=== PATIENT | female | born 1965 | race Caucasian/White ===

== ENCOUNTER 2022-12-15 08:30 | Outpatient (OUT) | payer OTHER, SELFPAY ==
--- NOTE | 2022-12-15 08:32 | MM_ITS ---
Patient: MARY NAVARRO Exam Date: 12/15/2022 : 1965 Gender:F Ordering : DR Natalia Chapman M.D. Admission #: [id number] Family : DR ENDER MIRANDA [facility] Order #: [id number] CLICK HERE TO VIEW EXAM RADIOLOGY REPORT PROCEDURE: MM TOMOSYNTHESIS SCREENING BI COMPARISON: MG MAMM SCREEN 3D ZAMZAM CAD, 12/14/2021. MG MAMM SCREEN 3D ZAMZAM CAD, 12/12/2020. INDICATIONS: Screening Calculator Name NCI Breast Cancer Risk Assessment Tool 5 Year Breast Cancer Risk 0.90% Lifetime Breast Cancer Risk 5.10% Personal Breast Cancer No Personal Ovarian Cancer No Treatments None Family Cancers None LOCATION: [facility] BREAST COMPOSITION: Heterogeneously dense,which may obscure small masses. FINDINGS: DIAGNOSTIC CATEGORY 2--BENIGN FINDING. NO CHANGE FROM COMPARISON. Scattered benign-appearing calcifications are present. Scattered benign-appearing lymph nodes are present. Scattered benign-appearing nodules are present. RIGHT BREAST: No significant suspicious finding. LEFT BREAST: No significant suspicious finding. RECOMMENDATIONS: ROUTINE MAMMOGRAM AND CLINICAL EVALUATION IN 12 MONTHS. PLEASE NOTE: A NORMAL MAMMOGRAM DOES NOT EXCLUDE THE POSSIBILITY OF BREAST CANCER. A CLINICALLY SUSPICIOUS PALPABLE LUMP SHOULD BE BIOPSIED. Dictated by: Dev Dorado MD on 12/15/2022 at 09:59 Approved by: Dev Dorado MD on 12/15/2022 at 10:01
== END 2022-12-15 08:31 | disposition home or self-care (01) ==
LOC: MAMMO 08:30
PROVIDERS: PCP Family Medicine; Visit Provider Family Medicine
DX: Z12.31 Encounter for screening mammogram for malignant neoplasm of breast (principal)
CPT/HCPCS: 77063; 77067

== ENCOUNTER 2023-12-19 09:26 | Outpatient (OUT) | payer OTHER, SELFPAY ==
--- NOTE | 2023-12-19 09:29 | MM_ITS ---
Patient Name: MARY NAVARRO MR#: [id number] : 1965 Exam Date: 12/19/2023 Ordering Doctor: DR DORON GIL M.D. RADIOLOGY REPORT PROCEDURE: MM TOMOSYNTHESIS SCREENING BI COMPARISON: MM TOMOSYNTHESIS SCREENING BI, 12/15/2022. MG MAMM SCREEN 3D ZAMZAM CAD, 12/14/2021. INDICATIONS: Screening Calculator Name NCI Breast Cancer Risk Assessment Tool 5 Year Breast Cancer Risk 0.90% Lifetime Breast Cancer Risk 5.00% Personal Breast Cancer No Personal Ovarian Cancer No Treatments None Family Cancers None LOCATION: [facility] BREAST COMPOSITION: The breasts are heterogeneously dense,which may obscure small masses. FINDINGS: DIAGNOSTIC CATEGORY 2--BENIGN FINDING. NO CHANGE FROM COMPARISON. Scattered benign-appearing nodules are present. Scattered benign-appearing calcifications are present. Scattered benign-appearing lymph nodes are present. RIGHT BREAST: No significant suspicious finding. LEFT BREAST: No significant suspicious finding. RECOMMENDATIONS: ROUTINE MAMMOGRAM AND CLINICAL EVALUATION IN 12 MONTHS. PLEASE NOTE: A NORMAL MAMMOGRAM DOES NOT EXCLUDE THE POSSIBILITY OF BREAST CANCER. A CLINICALLY SUSPICIOUS PALPABLE LUMP SHOULD BE BIOPSIED. Dictated by: Dev Dorado MD on 12/19/2023 at 11:22 Approved by: Dev Dorado MD on 12/19/2023 at 11:23
== END 2023-12-19 09:27 | disposition home or self-care (01) ==
LOC: MAMMO 09:27
PROVIDERS: PCP Family Medicine; Visit Provider Obstetrics & Gynecology
DX: Z12.31 Encounter for screening mammogram for malignant neoplasm of breast (principal)
CPT/HCPCS: 77063; 77067

== ENCOUNTER 2024-12-20 09:04 | Outpatient (OUT) | payer OTHER, SELFPAY ==
--- OUTSIDE RECORDS SUMMARY | 2024-12-20 09:08 | XMS_ITS | Patient Health Record ---
Author Organization [facility] Address [address] [place] [address] Care Team Providers Care Rrts Name Role Phone Natalia Chapman Primary Care Provider Unavailabl e Allergies Allergen (clinical drug ingredient) Drug/Non Drug Allergy documented on EMR Reaction Allergy Type Onset Date Status penicillin V Penicillin V Potassium rash Drug Allerg y Active Reason For Referral No Information Medications Medication SIG (Take, Route, Frequency, Duration) Notes Start Date End Date Status Losartan Potassium ActiveCitalopram Hydrobromide*Please review and pick correct strength- formulation from Hashgo options. If intended option is not shown, discontinue and re-order from Quick Search*ActiveAcetaminophen 325 MG2 tab(s) orally Every 6 hours PRNNot-TakingAleveActiveClaritin*Please review and pick correct strength- formulation from Hashgo options. If intended option is not shown, discontinue and re-order from Quick Search*Not-Taking Immunizations Vaccine Route Administration Date Status Comme nts [id number] Quad PFS (0.5mL Admin) 18 y/o & older Unknown 04/16/2021 Refused Social History Tobacco Use: Social History Observation Description Date Details (start date - stop date) Never Smoker NA - NA Tobacco Control (Standard) Question Answer Notes Tobacco use: Nonsmoker Problems Problem Type SNOMED Code ICD Code Onset Dates Problem Status W/U Status Risk Notes Problem Anxiety (48267546) Anxiety (F41.9) ActiveconfirmedProblemDepressive disorder (disorder) (49690065)Depression, unspecified depression type (F32.A)ActiveconfirmedProblemSeasonal allergy (211095895)Seasonal allergies (J30.2)ActiveconfirmedProblemDisorder of tongue (64590901)Tongue abnormality (Q38.3)ActiveconfirmedProblemHypertension (29455920)Hypertension (I10)Activeconfirmed Plan Of Treatment No Information Insurance Providers Payer Name Payer Address Payer Phone Subscriber Number Group Number Insured Name Patient Relationship to Insured Coverage Start Date Coverage End Date [employer] [place] [employer] [address] [place] [address] [id number] Cortez Cornejo - patient is the insured Medical (General) History Medical History History ICD Code anxiety/depression seasonal cqikbwzlyZiprnfonydrlX20Imrlojrc History Surgery Date(Month/Year) trigger finger repair-bilateral thumbsHospitalization History Reason Date(Month/Year) see above
--- OUTSIDE RECORDS SUMMARY | 2024-12-20 09:08 | XMS_ITS | Clinical Summary ---
Author Organization [facility] Address [address] [place] [address] Care Team Providers Care Motor Runner Name Role Phone Lisette Dev Miller Unavailable Dev Knox Unavailable Natalia Chapman MD Primary Care Provider [phone] Allergies Active AllergyReactionsCriticalityNoted DateCommentsPenicillinsHives,Itching, ThatScfa87/05/2023 Other Reaction(s): Fever Seasonal AllergiesOther: See AxguzsruFpltse60/15/2023 Medications MedicationSigDispense QuantityRefillsLast FilledStart DateEnd DateStatus vitamin D3-vitamin K2 (DOSOKAP) 137.5-200 mcg tab Active escitalopram oxalate (LEXAPRO) 10 mg tablet Take 1 tablet by mouth every afternoon.12/06/2022ctive estradiol (ESTRACE) 0.01 % (0.1 mg/gram) vaginal cream APPLY A PEA SIZED DOLLOP ON TIP OF FINGER TO THE OUTSIDE OF VAGINA AND SWIPE INTO VAGINA ONCE A DAY12/10/2021ctive losartan (COZAAR) 50 mg tablet Take 1 tablet by mouth every afternoon.11/28/2022ctive rosuvastatin (CRESTOR) 20 mg tablet Take 1 tablet by mouth every afternoon.11/09/2022ctive zolpidem (AMBIEN) 5 mg tablet TAKE 1 TABLET BY MOUTH EVERYDAY AT BEDTIME NEEDED FOR SLEEP11/09/2022ctive metoprolol succinate ER (TOPROL XL) 25 mg 24 hr tablet Take 25 mg by mouth.11/28/2015Active Family History Medical HistoryRelationCommentsColon CancerPaternal GrandmotherRelationStatus CommentsPaternal Grandmother Social History Tobacco UseTypesPacks/DayYears UsedDateSmoking Tobacco: NeverPassive Smoke Exposure: NeverSmokeless Tobacco: Never Tobacco Cessation:Counseling Given: Not Answered PHQ-2AnswerDate RecordedPHQ-2 nkqcr9134Area Deprivation IndexAnswerDate RecordedNational Score (1-100), lower number is lower pzah943512/29/2022State Score (1-10), lower number is lower brzo8273Data from: https://www.neighborhoodatlas.[facility]/. Last address used for [address] [facility]3CommentsUnknownSex and Gender InformationValueDate RecordedSex Assigned at BirthNot on fileLegal SexFemale 01/16/2012 9:12 AM ESTGender IdentityNot on fileSexual OrientationNot on file Last Filed Vital Signs Vital SignReadingTime TakenCommentsBlood Pressure--Pulse--Temperature-- Respiratory Rate--Oxygen Saturation--Inhaled Oxygen Concentration--Oxmjmq67.1 kg (148 lb)12/29/2022 9:25 AM YKAQlpggv915.6 cm (5' 6 )12/29/2022 9:25 AM ESTBody Mass Index23.8912/29/2022 9:25 AM EST Plan of Treatment Health MaintenanceDue DateLast DoneCommentsAnxiety Wgdhkwidd70/08/1983Depression Bsqqsptit38/08/1983HIV Itqfwlkvn13/08/1983Hepatitis C Wirxvldgd02/08/1983 DTaP,Tdap,Td Vaccine (1 - Tdap)06/22/1983Cervical Cancer Wdbdppiht47/08/1986CT Stdjkvafldcv58/08/2010Cologuard (FIT-DNA)06/21/20099606Ppfxbmyyabw75/08/2010 Colorectal Cancer Indoezbdu63/08/2010Diabetes Usguzossb92/08/2010Fecal Occult Blood2009Lipid Trnfwavbm40/08/6093Bxztpxmvnguhl80/08/2010Shingrix Vaccine (1 of 2)2014Mammogram Qvwlqqdhe51/29/340381, 10/29/2021Covid-19 Vaccine (4 - 5- season)501/05/2021, 06/05/2020, 05/16/2020 Influenza Vaccine (#1)2024RSV Vaccine (1 - 1-dose 75+ series)06/22/2039 Pneumococcal Vaccine: 50+Qawisvwbx46/01/2024 Insurance Care Teams Team MemberRelationshipSpecialtyStart DateEnd Date Natalia Chapman MD [address] [place] [address] PCP - Generalmily Medicine04/10/24 Dev Knox [address] [place] [phone] ArrnlusboUhnawpwbvhc85/6/23 Dev Knox [address] [facility] [address] MrpxukeatCyklyqnbiqd23/6/23
--- OUTSIDE RECORDS SUMMARY | 2024-12-20 09:08 | XMS_ITS | Clinical Summary ---
Author Organization [facility] Address [address] [place] [address] Care Team Providers Care President Financial Institution Name Role Phone Natalia Chapman MD Primary Care Provider [phone] Veena Tena APRN-MARINE TOWER OPERATOR Unavailable Allergies Active AllergyReactionsCriticalityNoted DateCommentsPenicillinsHives,Itching, PoixRfdx23/05/2023 Other Reaction(s): Fever Medications MedicationSigDispense QuantityRefillsLast FilledStart DateEnd DateStatus escitalopram (Lexapro) 10 MG tablet 11/18/2022ctive estradiol (Estrace) 0.1 MG/GM vaginal cream 12/10/2021ctive rosuvastatin (Crestor) 20 MG tablet 11/18/2022ctive losartan (Cozaar) 50 MG tablet 11/18/2022ctive Vitamin D-Vitamin K (DosoKap) 5500-200 UNIT-MCG tablet Take 1 tablet by mouth Daily08/26/2022ctive diphenhydrAMINE (BENADryl) 2 % cream Indications:Bug bite without infection, subsequent encounterApply topically 4 (four) times a day as needed for itching 56.8 g 1115Active Active Problems No known active problems Encounters DateTypeDepartmentCare HdhwKtkaffjhxrn32/29/2025 8:50 AM EDTOffice Visit [facility] [place] [facility] [address] [place] [phone] Veena Tena, MASTIC FLOOR LAYER-MARINE TOWER OPERATOR Seborrheic keratosis (Primary Dx); Lentigines; Capillary angioma; Prurigo nodularis; Melanocytic nevus of trunk; Jpenjonwvzppev52/29/2025amboo flowsheet [facility] [address] [place] [phone] Veena Tena, MASTIC FLOOR LAYER-MARINE TOWER OPERATOR 11/12/20242423Vflwzm25/22/2025Travelfrom Last 3 Months Family History Medical HistoryRelationNameCommentsHypertensionFatherHypertensionMotherRelation NameStatusCommentsFatherDeceasedMotherAlive Social History Tobacco UseTypesPacks/DayYears UsedDateSmoking Tobacco: NeverSmokeless Tobacco: Never Tobacco Cessation:Counseling Given: Not Answered Alcohol UseStandard Drinks/WeekCommentsYes0 (1 standard drink = 0.6 oz pure alcohol)caffeine 1-2 cups/day; coffeeCommentsUnknownSex and Gender InformationValueDate RecordedSex Assigned at BirthNot on fileLegal SexFemale 04/28/2022 6:35 PM EDTGender IdentityNot on fileSexual OrientationNot on file Last Filed Vital Signs Vital SignReadingTime TakenCommentsBlood Fdyndxsh699/9308 1:14 PM EDT Zbdkw307709/16/2023 1:14 PM RYKDuvayaqkijc73.8 ??C (98.2 ??F)09/16/2023 1:14 PM EDTRespiratory Smke628009/12/2023 12:11 PM EDTOxygen Dajnnejoqu67%09/12/2023 12:11 PM EDTInhaled Oxygen Concentration--Gxixts95.8 kg (156 lb)09/12/2023 12:11 PM XOOEusqmz316.1 cm (5' 5 )12/10/2022 8:30 AM EDTBody Mass Index25.9612/10/2022 8:30 AM EDT Plan of Treatment DateTypeDepartmentCare Team (Latest Contact Info)Mnqmtjmoizx21/06/2025 2:00 PM ESTClinical Support [facility] [address] [place] [address] Perlita Zimmerman, [facility] [address] [place] [address] 11/12/2025 9:05 AM EDTOffice Visit [facility] [place] [facility] [address] [place] [phone] Veena Tena, MASTIC FLOOR LAYER-MARINE TOWER OPERATOR [address] [place] [address] Health MaintenanceDue DateLast DoneCommentsCT Lhuprvqoeyap18/08/1965Colonoscopy 1965Colorectal Cancer Fugdyucoi89/08/1965FIT-DNA1964FIT1964 FOBT1965 0775Ylxjtijusnhdb69/08/1965Pneumococcal Vaccine: Pediatrics (0 to 5 Years) and At-Risk Patients (6 to 64 Years) (1 of 2 - PCV)06/22/1983Pap Smear 1985Cervical Cancer Qtbbafrdu29/08/1995HPV/Hecaew6706/21/1994Mammogram OVID-19 Vaccine (2024- season)501/05/2021, 06/05/2020, 05/16/2020Influenza Vaccine (#1)2024 Procedures Procedure NamePriorityDate/TimeAssociated DiagnosisCommentsBI MAMMOGRAM SCREENING TOMOSYNTHESIS FHMYQAWDMWkdbiau85/29/2021 from Last 3 Months or Most Recently Relevant to Health Maintenance Results * Bilateral screening mammogram with tomosynthesis (12/12/2020)Anatomical Region LateralityModalityBreastBilateralMammographySpecimen (Source)Anatomical Location / LateralityCollection Method / VolumeCollection TimeReceived Time Narrative 12/12/2020 12:00 AM EDT PERFORMED AT [facility] LOCATION:[place] [id number] Patient: ? MELANIE HERNANDEZ A. ? Exam Date: ? 12/12/2020 : ? 1965 ?Gender:F ? Ordering : ? DR Duy MORRIS D.O. ? Admission #: ? [id number] Family : ? DR NATALIA CHAPMAN M.D. ? Order #: ? [id number] ? CLICK HERE TO VIEW EXAM RADIOLOGY REPORT PROCEDURE: ? MAMMOGRAM SCREENING 3D BILATERAL CAD COMPARISON: ? MG MAMM SCREEN ZAMZAM W CAD 12/11/2019. ??MG MAMM RT DIAG W CAD 02/14/2020. INDICATIONS: ? Screening mammography Calculator Name ? NCI Breast Cancer Risk Assessment Tool 5 Year Breast Cancer Risk ? 0.80% Lifetime Breast Cancer Risk ? 5.30% Personal Breast Cancer ?No Personal Ovarian Cancer ? No Treatments ? None Family Cancers ? None LOCATION: ? [facility] BREAST COMPOSITION: ? Heterogeneously dense which may obscure small masses. FINDINGS: DIAGNOSTIC CATEGORY 1--NEGATIVE NO CHANGE FROM COMPARISON ASSESSMENT. Scattered benign-appearing calcifications are present. ??Scattered benign-appearing lymph nodes are present. RIGHT BREAST: ??No significant suspicious finding. LEFT BREAST: ??No significant suspicious finding. ??3 mm nodule upper outer quadrant stable RECOMMENDATIONS: ROUTINE MAMMOGRAM AND CLINICAL EVALUATION IN 12 MONTHS. PLEASE NOTE: ??A NORMAL MAMMOGRAM DOES NOT EXCLUDE THE POSSIBILITY OF BREAST CANCER. ??A CLINICALLY SUSPICIOUS PALPABLE LUMP SHOULD BE BIOPSIED. Dictated by: Dev Dorado MD on 12/12/2020 at 08:50 Approved by: Dev Dorado MD on 12/12/2020 at 08:53 Procedure Note CONVERSION, GENERIC - 08/20/2022 PERFORMED AT [facility] LOCATION:[place] [id number] Patient: MELANIE Denton Exam Date: 12/12/2020 : 1965 Gender:F Ordering : DR Duy MORRIS D.O. Admission #: [id number] Family : DR NATALIA CHAPMAN M.D. Order #: [id number] CLICK HERE TO VIEW EXAM RADIOLOGY REPORT PROCEDURE: MAMMOGRAM SCREENING 3D BILATERAL CAD COMPARISON: MG MAMM SCREEN ZAMZAM W CAD 12/11/2019. MG MAMM RT DIAG W CAD 02/14/2020. INDICATIONS: Screening mammography Calculator Name NCI Breast Cancer Risk Assessment Tool 5 Year Breast Cancer Risk 0.80% Lifetime Breast Cancer Risk 5.30% Personal Breast Cancer No Personal Ovarian Cancer No Treatments None Family Cancers None LOCATION: [facility] BREAST COMPOSITION: Heterogeneously dense which may obscure small masses. FINDINGS: DIAGNOSTIC CATEGORY 1--NEGATIVE NO CHANGE FROM COMPARISON ASSESSMENT. Scattered benign-appearing calcifications are present. Scattered benign-appearing lymph nodes are present. RIGHT BREAST: No significant suspicious finding. LEFT BREAST: No significant suspicious finding. 3 mm nodule upperouter quadrant stable RECOMMENDATIONS: ROUTINE MAMMOGRAM AND CLINICAL EVALUATION IN 12 MONTHS. PLEASE NOTE: A NORMAL MAMMOGRAM DOES NOT EXCLUDE THE POSSIBILITY OFBREAST CANCER. A CLINICALLY SUSPICIOUS PALPABLE LUMP SHOULD BE BIOPSIED. Dictated by: Dev Dorado MD on 12/12/2020 at 08:50 Approved by: Dev Dorado MD on 12/12/2020 at 08:53 Authorizing ProviderResult TypeResult StatusGeorge Felipe Morris DOIMG BI PROCEDURES Final Result from Last 3 Months or Most Recently Relevant to Health Maintenance Insurance Care Teams Team MemberRelationshipSpecialtyStart DateEnd Date Natalia Chapman MD [address] [place] [phone] PCP - GeneralFamily Vwahsoqk41/5/23 Veena Tena, MASTIC FLOOR LAYER-MARINE TOWER OPERATOR [address] [place] [address] PCP - [facility]02/2510
--- OUTSIDE RECORDS SUMMARY | 2024-12-20 09:12 | XMS_ITS | CCD ---
Author Organization [facility] Care Team Providers Care [place] Applier Name Role Phone JAMEC, DR MONTALVO Attending Unavailable BRAR, DR CODI Friedman Primary Care Unavailable VICKI, DR MONTALVO Admitting Unavailable WEST, DR RAJ Wyatt Consulting Unavailable VICKI, DR MONTALVO Consulting Unavailable BRAR, DR CODI Friedman Primary Care Unavailable WEST, DR RAJ Wyatt Consulting Unavailable BRAR, DR CODI Friedman Admitting Unavailable BRAR, DR CODI Friedman Attending Unavailable BRAR, DR CODI Friedman Consulting Unavailable CASTLE, WINCHA Consulting Unavailable IRENA VANCE Admitting Unavailable IRENA VANCE Attending Unavailable IRENA VANCE Consulting Unavailable MAYKEL, DR CODI Friedman Primary Care Unavailable MD Codi Brar Primary Care Provider [facility], Outreach Attending Provider [phone] Codi Brar Unavailable Ender Beebe Attending Unavailable Ender Beebe Admitting Unavailable Raj Knox Unavailable DMITRY KILPATRICK Attending Unavailable DMITRY KILPATRICK Attending Unavailable MD Codi Brar Primary Care Provider [phone] MD Codi Brar Attending Provider [phone] Codi Brar MD Primary Care Provider [phone] Codi Brar MD Primary Care Provider DMITRY KILPATRICK Referring Unavailable CODI BRAR Primary Care Unavailable DMITRY KILPATRICK Referring Unavailable oCdi Brar MD Primary Care Provider [phone] Codi Brar MD Attending Provider [phone] Codi Brar Attending Unavailable Codi Brar Primary Care Unavailable Codi Brar Admitting Unavailable Codi Brar MD Primary Care Provider Madan Banerjee Unavailable MADAN TENA Attending Unavailable MATTHEW WINCHESTER Attending Unavailable MADAN TENA Attending Unavailable Allergies Allergy ClassificationReported Allergen(s)Allergy TypeDate of OnsetReaction(s) Facility (20 sources)Penicillins; Translations: [Penicillins]Allergy to substance 53-78-6932pzsk, Hives, ItchingThe [facility] (6 sources)hydroCHLOROthiazide / TriamtereneDrug Zhmqjoi28-51-0400 Comment:Freetext Needs Updated.Nanosys Other (6 sources)Seasonal allergy; Translations: [seasonal allergies]Propensity to adverse reactions (disorder)43-72-7156Riilj: See CommentsAvita Health [facility] (1 source)TriamtereneDrug Slfuiof52-95-2001LcaiknedkDiley [facility] Center Repository (1 source)Unable to AssessDrug allergy (disorder)32-13-4150DthhqmzmuDiley Ridge Medical Center Repository Medications Current Medications MedicationDrug Class(es)DatesSig (Normalized)Sig (Original)cholecalciferol 5500 unt / vitamin k2 0.2 mg oral tablet (5 sources)Vitamin DStart: 03-64-0388efyq 137.5-200 ug by mouth once daily vitamin D3-vitamin K2 (DOSOKAP) 137.5-200 mcg tab ActivediphenhydrAMINE hydrochloride 20 mg/ml topical cream (4 sources)Histamine-1 Receptor AntagonistStart: 01-19-2024 End: 71-42-9367xiblikacbiBZXED (BENADryl) 2 % cream Indications: Bug bite without infection, subsequent encounter Apply topically 4 (four) times a day as needed for itching 56.8 g 11 01/19/2024 01/18/2025 Activeestradiol 0.1 mg/ml vaginal cream (20 sources)EstrogenStart: 24-37-3963Burqa: 46-49-7829perazdpat (Estrace) 0.1 MG/GM vaginal cream 12/10/2021 ActiveStart: 34-33-9842nrgznadmg (Estrace) 0.1 MG/GM vaginal cream APPLY A PEA SIZED DOLLOP ON TIP OF FINGER TO THE OUTSIDE OF VAGINA AND SWIPE INTO VAGINA ONCE A DAY 12/10/2021 ActiveComment on above:APPLY A PEA SIZED DOLLOP ON TIP OF FINGER TO THE OUTSIDE OF VAGINA AND SWIPE INTO VAGINA ONCE A DAY24 hr metoprolol succinate 25 mg extended release oral tablet (7 sources)beta-Adrenergic BlockerStart: 95-42-4682bqth 1 tablet by mouth once dailyStart: 46-52-7433pfdk 1 tablet by mouth every twenty-four hoursmetoprolol succinate ER (TOPROL XL) 25 mg 24 hr tablet Take 25 mg by mouth. 11/28/2015 ActiveComment on above:Take 25 mg by mouth.rosuvastatin calcium 20 mg oral tablet (20 sources)HMG-CoA Reductase InhibitorStart: 04-28-2023 End: 65-61-2438fvoa 1 tablet by mouth once dailyStart: 11-09-2022 End: 39-24-3222fzzstjbguhhr (Crestor) 20 MG tablet 11/18/2022 ActiveComment on above:Take 1 tablet by mouth every afternoon.Vitamin D-Vitamin K (DosoKap) 5500- 200 UNIT-MCG tablet (15 sources)Start: 85-35-5201ogwg 1 tablet by mouth once dailyVitamin D-Vitamin K (DosoKap) 5500-200 UNIT-MCG tablet Take 1 tablet by mouth Daily 08/26/2022 ActiveStart: 63-12-3348phlt 1 tablet by mouth once in the morningVitamin D- Vitamin K (DosoKap) 5500-200 UNIT-MCG tablet Take 1 tablet by mouth in the morning. 08/26/2022 Active Completed/Discontinued Medications MedicationDrug Class(es)DatesSig (Normalized)Sig (Original)azithromycin 250 mg oral tablet (6 sources)Macrolide AntimicrobialStart: 36-76-7089Pxdyotcts Z-Sammy 250 MG 2 tablet on the first day, then 1 tablet daily for 4 days Orally Once a day for 5 day(s) Sep, Not-Taking/PRNBeyaz (6 sources)Beyaz Take as directed Oral Not-Taking/PRNBeyaz Take as directed Oral Not-TakingbusPIRone hydrochloride 5 mg oral tablet (10 sources)Start: 07-01-2023 End: 59-08-3478xmuy 1 tablet by mouth twice dailyBuspirone 5 mg tablet Discontinued 5 MG PO Twice daily July 01, 2023 12:00am July 05, 2023 9:09am take 1 tablet by mouth three times daily as neededBuSpar 5 MG 1 tablet Orally Three times a day Not-Taking/PRNciprofloxacin 500 mg oral tablet (8 sources)Quinolone AntimicrobialStart: 07-02-2024 End: 18-32-0050zdmi 1 tablet by mouth twice dailyCiprofloxacin Hcl 500 mg tablet Discontinued 500 MG PO Twice daily July 02, 2024 12:00am 2024 10:24amStart: 07-01-2023 End: 63-17-1999Zmieythbnmsqz Hcl 0.3 % drops Discontinued DROPS OPHTHALMIC July 01, 2023 12:00am July 05, 2023 9:08am FreeTextSi application into the lower eyelid of affected eye Ophthalmic tid; Note: Source Status: Start; Qty: 1 Each; Provider: Maykel Fisher EStart: 95-28-7762Lswmxcyvrkjgn HCl 0.3 % 1 application into the lower eyelid of affected eye Ophthalmic tid for 5 day(s) Jan, Activedoxycycline monohydrate 100 mg oral tablet (2 sources)Tetracycline-class DrugStart: 09-12-2023 End: 34-83-3464arqf 1 tablet by mouth oncedoxycycline (Adoxa) 100 MG tablet Indications: Cellulitis of great toe of right foot Take 1 tablet (100 mg) by mouth every 12 (twelve) hours for 7 days Take with a full glass of water and do not lie down for at least 30 minutes after, avoid sun exposure 14 tablet 09/12/2023 09/19/2023 ExpiredDrospirenone-E.Estradiol-Lm.Fa (4 sources)Progestin, EstrogenStart: 07-01-2023 End: 20-36-4387Qtyarcpivdnb-E.Estradiol-Lm.Fa 3-0.02-0.451 mg (24) (4) tablet Discontinued TAB PO July 01, 2023 12:00am July 05, 2023 9:10am FreeTextSig: Take as directed Oral; Note: Source Status: Not-TakingundefinedPRN; Provider: Maykel Fisher ( )Start: 07-01-2023 End: 32-05-0084Evsdnsyuhejy-E.Estradiol-Lm.Fa Discontinued TAB PO July 01, 2023 12:00am July 05, 2023 9:10am FreeTextSig: Take as directed Oral; Note: Source Status: Not-Taking\PRN; Provider: Maykel Fisher ( )escitalopram 10 mg oral tablet (20 sources)Serotonin Reuptake InhibitorStart: 08-29-2023 End: 91-02-0527yfss 1 tablet by mouth once dailyEscitalopram Oxalate 10 mg tablet Discontinued 0 .ROUTE .COMPLEX 90 July 02, 2024 9:51am October 01, 2024 12:23pm TAKE 1 TABLET BY MOUTH EVERY DAYStart: 11-09-2022 End: 26-34-7143sottsfvjprfn (Lexapro) 10 MG tablet 11/18/2022 ActiveComment on above:Take 1 tablet by mouth every afternoon.gentamicin 3 mg/ml ophthalmic solution (10 sources)Start: 07-01-2023 End: 62-26-9617xqxf 1 drop(s) into the eye(s) every four hoursGentamicin 0.3 % drops Discontinued DROPS OPHTHALMIC July 01, 2023 12:00am July 05, 2023 9:09am FreeTextSi drop into both eyes Ophthalmic every 4 hrs to 6 hours; Note: Source Status: Not-TakingundefinedPRN; Refills: 0; Provider: Maykel Fisher ( )Start: 07-01-2023 End: 85-53-5088yhxy 1 drop(s) into the eye(s) every four hoursGentamicin Discontinued DROPS OPHTHALMIC July 01, 2023 12:00am July 05, 2023 9:09am FreeTextSi drop into both eyes Ophthalmic every 4 hrs to 6 hours; Note: Source Status: Not-Taking\PRN; Refills: 0; Provider: Maykel Fisher ( )Start: 35-43-4739Lgrzposszp Sulfate 0.3 % 2 drop into both eyes Ophthalmic every 4 hrs to 6 hours for 5 days Not-Taking/PRNStart: 24-79-2523Kqsbjrjjfs Sulfate 0.3 % 2 drop into both eyes Ophthalmic every 4 hrs to 6 hours for 5 days Not-Takinglosartan potassium 50 mg oral tablet (20 sources)Angiotensin 2 Receptor BlockerStart: 05-30-2023 End: 63-03-7383ewhm 1 tablet by mouth once dailyLosartan 50 mg tablet Discontinued 0 .ROUTE .COMPLEX 90 June 28, 2024 2:03pm October 01, 2024 12:2 3pm TAKE 1 TABLET BY MOUTH EVERY DAYStart: 11-18-2022 End: 63-61-8781vkgbttfb (Cozaar) 50 MG tablet 11/18/2022 ActiveComment on above: Take 1 tablet by mouth every afternoon.venlafaxine 75 mg oral tablet (10 sources)Serotonin and Norepinephrine Reuptake InhibitorStart: 07-01-2023 End: 95-07-8007rqjz 1 tablet by mouth once dailyVenlafaxine 75 mg tablet Discontinued 75 MG PO Daily July 01, 2023 12:00am July 05, 2023 9:09amtake 1 tablet by mouth twice daily at mealtimeEffexor 75 MG 1 tablet with food Orally Twice a day for 30 day(s) Not-Taking/PRNzolpidem tartrate 5 mg oral tablet (20 sources)gamma-Aminobutyric Acid-ergic AgonistStart: 11-09-2022 End: 37-31-9975ovac 1 tablet by mouth once daily at bedtimeZolpidem 5 mg tablet Discontinued 5 MG PO Daily at bedtime April 28, 2023 12:00am May 04, 2023 8:30amComment on above:TAKE 1 TABLET BY MOUTH EVERYDAY AT BEDTIME NEEDED FOR SLEEP Problems Active Problems Problem ClassificationProblemDateDocumented DateEpisodic/ChronicAnxiety disorders (10 sources)Mixed anxiety and depressive disorder; Translations: [Other specified anxiety disorders]ChronicDisorders of lipid metabolism (15 sources)Dyslipidemia; Translations: [Hyperlipidemia, unspecified]Onset: 75-97-3128EhughizT Codes: Natural/environment (2 sources)Insect bite - wound; Translations: [Bitten or stung by nonvenomous insect and other nonvenomous arthropods, subsequent encounter]88-70-4875Jwfjgcjk Heart valve disorders (1 source)Rheumatic tricuspid insufficiency; Translations: [RHEUMATIC TRICUSPID INSUFFICIENCY]Onset: 10-13-2442ZklaeopZqzfq valve disorders (4 sources)Cardiac murmur, unspecified; Translations: [CARDIAC MURMUR UNSPECIFIED]Onset: 05-22-6082CxkqkwylXerfvgswtdkz; infection of eye (except that caused by tuberculosis or sexually transmitteddisease) (1 source)Unspecified acute conjunctivitis, right eyeEpisodicMiscellaneous mental health disorders (7 sources)Primary insomnia; Translations: [Primary insomnia]ChronicMycoses (4 sources)Onychomycosis; Translations: [Tinea unguium]97-89-2895EoqdenliLfzjd and unspecified benign neoplasm (3 sources)Lipoma of left lower limb; Translations: [Benign lipomatous neoplasm of skin and subcutaneous tissue of left leg]85-86-8873QtmbktoiQfucs and unspecified benign neoplasm (3 sources)Dermatofibroma; Translations: [Other benign neoplasm of skin, unspecified]81-99-1730DydgbuozFxhbs and unspecified benign neoplasm (2 sources)Lipoma of lower limb; Translations: [Benign lipomatous neoplasm of skin and subcutaneous tissue of unspecified limb]88-20-2309UbmtihehMvzmn and unspecified benign neoplasm (1 source)Melanocytic nevus of trunk; Translations: [Melanocytic nevi of trunk] 21-75-4364NhrjigfdLxrrb circulatory disease (3 sources)Spider nevus; Translations: [Nevus, non-neoplastic]08-81-3335Ctbkkxci Other connective tissue disease (1 source)Other specified soft tissue disordersEpisodicOther ear and sense organ disorders (6 sources)Bilateral tinnitus; Translations: [Tinnitus, bilateral]EpisodicOther ear and sense organ disorders (1 source)Tinnitus; Translations: [Tinnitus, unspecified ear]55-73-5502Hzmwszse Other inflammatory condition of skin (1 source)Prurigo nodularis; Translations: [Prurigo nodularis]55-80-5453Wicnconu Other lower respiratory disease (1 source)Dyspnea, unspecified; Translations: [DYSPNEA UNSPECIFIED]Onset: 25-38-5767YgebjaqsAkxqn lower respiratory disease (1 source)Other abnormalities of breathing; Translations: [OTHER ABNORMALITIES OF BREATHING]Onset: 56-73-0023JenrznloPptyt nervous system disorders (6 sources)Piriformis syndrome; Translations: [Lesion of sciatic nerve, right lower limb]ChronicOther nervous system disorders (2 sources)Notalgia paresthetica; Translations: [Paresthesia of skin]10-27-2023 EpisodicOther nervous system disorders (2 sources)Numbness of toe; Translations: [Anesthesia of skin]88-81-8313Mkpicgoi Other screening for suspected conditions (not mental disorders or infectious disease) (4 sources)Encounter for screening mammogram for malignant neoplasm of breast; Translations: [ENC SCR MAMMO MALIG NEOPLASM BREAST]Onset: 13-19-2718Czqcbcuq Other skin disorders (3 sources)Seborrheic keratosis; Translations: [Other seborrheic keratosis] 79-38-6309FwqbpwadSmgvc skin disorders (3 sources)Lentiginosis; Translations: [Other melanin hyperpigmentation] 48-53-5214OxdvfbtvZvopm skin disorders (2 sources)Actinic keratosis; Translations: [Actinic keratosis]11-10-2023 EpisodicOther upper respiratory infections (2 sources)Acute maxillary sinusitis; Translations: [Acute maxillary sinusitis, unspecified]35-67-1161SmxnhnfcYytjsjxk codes; unclassified (4 sources)Insomnia; Translations: [Insomnia, unspecified]52-13-8521IjakiwjrKjjv and subcutaneous tissue infections (4 sources)Cellulitis of right toe; Translations: [Cellulitis and abscess of toe, unspecified]94-92-7288GhhmjykhOgpcpuhuudn; intervertebral disc disorders; other back problems (1 source)Spondylosis without myelopathy or radiculopathy, thoracic region; Translations: [SPONDYLS W/O MYELO-/RADICULOP THOR]Onset: 36-13-7359Gezuvfo Spondylosis; intervertebral disc disorders; other back problems (1 source)Pain in thoracic spine; Translations: [PAIN IN THORACIC SPINE]Onset: 60-02-4147TzkmlzedRtwypijiqtn injury; contusion (6 sources)Insect bite to leg - nonvenomous; Translations: [Insect bite (nonvenomous), unspecified lower leg, subsequent encounter]14-05-9057Ntzloyqw Unclassified (2 sources)H93.13 - Tinnitus, bilateral Past or Other Problems Problem ClassificationProblemDateDocumented DateEpisodic/ChronicImmunizations and screening for infectious disease (4 sources)Encounter for immunization; Translations: [ENCOUNTER FOR IMMUNIZATION]Onset: 09-69-2402YmzqtlsbGdigj and unspecified benign neoplasm (1 source)Benign lipomatous neoplasm of skin and subcutaneous tissue of left leg; Translations: [Lipoma of left lower extremity]Onset: 69-08-7601Yuzmzqtv Results Test NameValueInterpretationReference RangeFacilityAlanine aminotransferase [Enzymatic activity/volume] in Serum or PlasmaOrdered By: Codi Brar on 35-07-1814ZRN [Catalytic activity/Vol]26 U/LNormal7-52[facility] CenterComment on above:Performed By: #### CMP, LIPID #### [facility] [place] [address] [place] [address] USAAlbumin [Mass/volume] in Serum or Plasma by Bromocresol green (BCG) dye binding methoOrdered By: Codi Brar on 54-30-4063Raxbowt BCG dye [Mass/Vol]4.8 g/dL3.5-5.7FProtestant HospitalAlkaline phosphatase [Enzymatic activity/volume] in Serum or PlasmaOrdered By: Codi Brar on 18-91-1507TUR [Catalytic activity/Vol]90 U/INvtpoc44-090QitevsupvDiley Ridge Medical CenterComment on above:Performed By: #### CMP, LIPID #### [facility] [address] [place] [address] USAAspartate aminotransferase [Enzymatic activity/volume] in Serum or PlasmaOrdered By: Codi Brar on 47-88-4543YIX [Catalytic activity/Vol]22 U/AFarbei15-90NptykgcsqDiley Ridge Medical CenterComment on above: Performed By: #### CMP, LIPID #### [facility] [address] [place] [address] USABilirubin.total [Mass/volume] in Serum or PlasmaOrdered By: Codi Brar on 24-59-5823Xrevdmnru [Mass/Vol]0.5 mg/dLNormal0.3-1.0 [facility] CenterComment on above:Performed By: #### CMP, LIPID #### [facility] [address] [place] [address] USACalcium [Mass/volume] in Serum or PlasmaOrdered By: Codi Brar on 67-70-3547Xkdnvtw [Mass/Vol]9.7 mg/dLNormal8.6-10.3FProtestant HospitalComment on above:Performed By: #### CMP, LIPID #### [facility] [address] [place] [address] USACarbon dioxide, total [Moles/volume] in Serum or Plasma Ordered By: Codi Brar on 52-27-2906SL8 [Moles/Vol]31.1 mmol/LHigh21.0-31.0 [facility] CenterComment on above:Performed By: #### CMP, LIPID #### [facility] [address] [place] [address] USAChloride [Moles/volume] in Serum or PlasmaOrdered By: Codi Brar on 48-08-2276Hxggetre [Moles/Vol]103 mmol/KRglcwf98-749UzcntasrrDiley Ridge Medical CenterComment on above:Performed By: #### CMP, LIPID #### [facility] [address] [place] [id number] USACholesterol [Mass/volume] in Serum or PlasmaOrdered By: Codi Brar on 66-91-2405Dfbtfnyyixi [Mass/Vol]157 mg/wJWtyqmk354-246ViaalmavsDiley Ridge Medical CenterComment on above:Chol less than 200 mg/dl low riskChol 201-239 mg/dl borderline riskChol 240 mg/dl and greater high riskResult Comment: Chol less than 200 mg/dl low risk Chol 201-239 mg/dl borderline risk Chol 240 mg/dl and greater high riskPerformed By: #### CMP, LIPID #### [facility] [address] [place] [id number] USACholesterol in HDL [Mass/volume] in Serum or PlasmaOrdered By: Codi Brra on 23-70-5406Jcujidzqzxo in HDL [Mass/Vol]60 mg/bLFfgcdy12-11 [facility] CenterComment on above:HDL CHOL ATP-III CLASSIFICATION Cardiovascular RiskHDL > or equal to 60 mg/dL LOWHDL < 40 mg/dL HIGHResult Comment: HDL CHOL ATP-III CLASSIFICATION Cardiovascular Risk HDL > or equal to 60 mg/dL LOW HDL < 40 mg/dL HIGHPerformed By: #### CMP, LIPID #### [facility] [place] [address] [place] [id number] USACholesterol in LDL Calc [Mass/Vol]Ordered By: Codi Brar on 42-29-6949Fganhjafukw in LDL [Mass/Vol]52 mg/dL0-100[facility] CenterComment on above:LDL ATP III CLASSIFICATIONLDL less than 100 mg/dL OptimalLDL 100-129 mg/dL Near or above otumrlfIBO697-824 mg/dL Borderline highLDL 160-189 mg/dL HighLDL greater than 189 mg/dL Very highCholesterol in VLDL Calc [Mass/Vol]Ordered By: Codi Brar on 11-33-9896Nmojiqjrfsy in VLDL [Mass/Vol]45 mg/dLDiley Ridge Medical CenterComprehensive Metabolic Panel on 23-58-5667Kteexww [Mass/Vol]4.8 g/dLNormal3.5-5.7The [facility] Care Physician GroupComment on above:Performed By: #### CMP, LIPID #### [facility] [place] [address] [place] [id number] USAGFR/1.73 sq M.predicted MDRD (S/P/Bld) [Vol rate/Area] mL/min/{1.73_m2}NormalThe [facility] Health Care Physician GroupComment on above:Performed By: #### CMP, LIPID #### [facility] [place] [address] [place] [address] USACreatinine [Mass/volume] in Serum or PlasmaOrdered By: Codi Brar on 90-99-3986Ldiymneyew [Mass/Vol]0.77 mg/dLNormal0.60-1.20 [facility] CenterComment on above:Performed By: #### CMP, LIPID #### [facility] [place] [address] [place] [address] USAGlomerular filtration rate [Volume Rate/Area] in Serum, Plasma or Blood by CreatinineOrdered By: Codi Brar on 74-07-9064Bqdiwinljp filtration rate [Volume Rate/Area] in Serum, Plasma or Blood by Creatinine> 60.0 mL/MinDiley Ridge Medical CenterGlucose [Mass/volume] in Serum or Plasma Ordered By: Codi Brar on 13-95-7166Kwgjqlj [Mass/Vol]103 mg/eUQpvr85-692 [facility] CenterComment on above:ADA recommended reference rangeRandom Glucose Reference Range is dependent on time and content of last meal. Glucose of more than 200 mg/dL in a nonstressed, ambulatory subject supports the diagnosisof Diabetes Mellitus.Result Comment: Random Glucose Reference Range is dependent on time and content of last meal. Glucose of more than 200 mg/dL in a nonstressed, ambulatory subject supports the diagnosis of Diabetes Mellitus. ADA recommended reference rangePerformed By: #### CMP, LIPID #### [facility] [place] [address] [place] [address] USALipid Panelon 72-83-9278ZCF Cholesterol,Vqlodiyxdx86 mg/dL Normal0-100The [facility] Health Care Physician GroupComment on above:Result Comment: LDL ATP III CLASSIFICATION LDL less than 100 mg/dL Optimal LDL 100-129 mg/dL Near or above optimal LDL 130-159 mg/dL Borderline high LDL 160-189 mg/dL High LDL greater than 189 mg/dL Very highPerformed By: #### CMP, LIPID #### [facility] [place] [address] [place] [id number] USATriglyceride w/Byaeiy938 mg/dLHigh0-149The [facility] Care Physician GroupComment on above:Result Comment: TRIG ATP III CLASSIFICATION TRIG less than 150 mg/dL Normal TRIG 150-199 mg/dL Borderline high TRIG 200-500 mg/dL High TRIG greater than 500 mg/dL Very high Standard traceable to the Center for Disease Conrtrol and Prevention (CDC) test method.Performed By: #### CMP, LIPID #### [facility] [place] [address] [place] [id number] USAVLDL GXPUEMRAHMY86 mg/dLNormalThe [facility] Care Physician GroupComment on above:Performed By: #### CMP, LIPID #### [facility] [place] [address] [place] [id number] USANo Panel InformationOrdered By: Codi Brar on 11-05-2024 Pharm[facility] [Moles/volume] in Serum or PlasmaOrdered By: Codi Brar on 11-05-2024 Potassium [Moles/Vol]4.5 mmol/LNormal3.5-5.1FProtestant Hospital Comment on above:Performed By: #### CMP, LIPID #### [facility] [address] [place] [address] USAProtein [Mass/volume] in Serum or PlasmaOrdered By: Codi Brar on 75-37-1805Lxjvggq [Mass/Vol]7.6 g/dLNormal6.4-8.9[facility] CenterComment on above:Performed By: #### CMP, LIPID #### [facility] [place] [address] [place] [address] USASerum globulin measurement by calculation (mass/volume) Ordered By: Codi Brar on 47-28-1925Qodwfgnp (S) [Mass/Vol]2.8 g/dLNormal [facility] CenterComment on above:Performed By: #### CMP, LIPID #### [facility] [address] [place] [address] USASerum or plasma albumin/globulin mass ratioOrdered By: Codi Brar on 76-82-3316Sazjvir/Globulin [Mass ratio]1.7 {ratio}Normal [facility] CenterComment on above:Performed By: #### CMP, LIPID #### [facility] [address] [place] [address] USASerum or plasma anion gap determinationOrdered By: Codi Brar on 36-52-8630Rcuou gap [Moles/Vol]11.4 mmol/LNormal6.0-15.0[facility] CenterComment on above:Performed By: #### CMP, LIPID #### [facility] [address] [place] [address] USASerum or plasma total cholesterol/high density lipoprotein (HDL) cholesterol mass ratOrdered By: Codi Brar on 11-05-2024 Cholesterol.total/Cholesterol in HDL [Mass ratio]2.6 {ratio}Normal<5.0[facility] CenterComment on above:Result Comment: PERFORMED BY: [place] [id number] PATHOLOGIST RECORD CENTER COORDINATOR MERARY RUSSELL M.D.Performed By: #### CMP, LIPID #### [place] [address] USASodium [Moles/volume] in Serum or PlasmaOrdered By: Codi Brar on 84-58-2017[place]mk[place] [Moles/Vol]141 mmol/YNcfdak983-503YrzrfcubaDiley Ridge Medical CenterComment on above:Performed By: #### CMP, LIPID #### [place] [id number] USATriglyceride [Mass/volume] in Serum or PlasmaOrdered By: Codi Brar on 14-07-8032Ijdhrucctect [Mass/Vol]227 mg/dLHigh0-149[facility] CenterComment on above:TRIG ATP III CLASSIFICATIONTRIG less than 150 mg/dL NormalTRIG 150-199 mg/dL Borderline highTRIG 200-500 mg/dL High TRIG greater than 500 mg/dL Very highStandard traceable to the Center for Disease Conrtrol and Prevention (CDC) test method.Urea nitrogen [Mass/volume] in Serum or PlasmaOrdered By: Codi Brar on 31-25-5310Mtou nitrogen [Mass/Vol]16 mg/dLNormal7-25[facility] CenterComment on above:Performed By: #### CMP, LIPID #### [place] [id number] USAMRI UPPER LEG WO IVCON LTon [id number] UPPER LEG WO IVCON LT* * *Final Report* * * DATE OF EXAM: May 01 2024 12:17PM [facility] 0259 - MRI UPPER LEG WO IVCON LT / PROCEDURE REASON: Lipoma of left lower extremity * * * * Physician Interpretation * * * * LEFT UPPER LEG MRI: CLINICAL HISTORY: Lipoma of left lower extremity TECHNIQUE: Routine MR imaging of left upper leg was performed. COMPARISON: 06/06/2023 RESULT: NERVES: The visualized nerves normal in caliber and signal intensity. There is no mass or mass effect. BONE MARROW: Bone marrow signal intensity is maintained without acute fractures or marrow infiltrating neoplasm. MUSCLES: Again seen is approximately 5.3 x 2.3 x 8 cm intramuscular fatty lesion in left rectus femoris muscle, similar to prior examination. Muscle fibers are noted within the periphery of this lesion. No focal nonfatty nodules are identified. TENDONS: Visualized tendons are grossly intact. SUBCUTANEOUS TISSUES: No focal mass or collection. JOINTS: Normal appearing hip and knee joints within the limitation of large field of view. OTHER: None. IMPRESSION: STABLE APPEARANCE OF INTRAMUSCULAR FATTY LESION DESCRIBED. Stock Holder: RIYA Transcribe Date/Time: May 14 2024 10:49A Dictated by : CORNELIUS WELSH MD This examination was interpreted and the report reviewed and electronically signed by: CORNELIUS WELSH MD on May 14 2024 10:59AM EST [id number] Medical CenterNo Panel InformationOrdered By: Siri Bone on 84-94-3719PNUW IBillionaire Work Phone: alanine aminotransferase [Enzymatic activity/volume] in Serum or PlasmaOrdered By: Codi Brar on 30-91-3901YJW [Catalytic activity/Vol]32 U/L7-52[facility] CenterAlbumin [Mass/volume] in Serum or Plasma by Bromocresol green (BCG) dye binding methoOrdered By: Codi Brar on 88-16-3213Jgeabwi BCG dye [Mass/Vol]4.9 g/dL3.5-5.7FProtestant HospitalAlkaline phosphatase [Enzymatic activity/volume] in Serum or PlasmaOrdered By: Codi Brar on 35-21-2492HWF [Catalytic activity/Vol]75 U/L 34-104[facility] Medical CenterAspartate aminotransferase [Enzymatic activity/volume] in Serum or PlasmaOrdered By: Codi Brar on 26-59-4761AFE [Catalytic activity/Vol]30 U/I70-63WfjytmazbDiley Ridge Medical CenterBasophils Auto (Bld) [#/Vol]Ordered By: Codi Brar on 43-80-3599Qgcessbyz (Bld) [#/Vol] 0.0 10*3/uL0.0-0.2FProtestant HospitalBasophils/100 WBC Auto (Bld) Ordered By: Codi Brar on 28-34-6665Wuhnvnxnu/100 WBC (Bld)0.7 %.[facility] Medical CenterBilirubin.total [Mass/volume] in Serum or PlasmaOrdered By: Codi Brar on 93-38-8967Kmruaqojp [Mass/Vol]0.6 mg/dL0.3-1.0[facility] CenterCalcium [Mass/volume] in Serum or PlasmaOrdered By: Codi Brar on 90-59-8985Cbwqtbg [Mass/Vol]10.1 mg/dL8.6-10.3FProtestant HospitalCarbon dioxide, total [Moles/volume] in Serum or PlasmaOrdered By: Codi Brar on 88-95-3698AB0 [Moles/Vol]31.0 mmol/L21.0-31.0[facility] CenterChloride [Moles/volume] in Serum or PlasmaOrdered By: Codi Brar on 35-52-1847Joqtyddm [Moles/Vol]102 mmol/F66-746EtuxfdugjDiley Ridge Medical CenterCholesterol [Mass/volume] in Serum or PlasmaOrdered By: Codi Brar on 92-62-8222Hgrcjqsihct [Mass/Vol]208 mg/aVJmlu316-212HtalhtteqDiley Ridge Medical CenterComment on above:Chol less than 200 mg/dl low riskChol 201-239 mg/dl borderline riskChol 240 mg/dl and greater high riskCholesterol in LDL Calc [Mass/Vol]Ordered By: Codi Brar on 35-05-1094Yiaobqdmgag in LDL [Mass/Vol]82 mg/dL0-100[facility] Medical CenterComment on above:LDL ATP III CLASSIFICATIONLDL less than 100 mg/dL OptimalLDL 100-129 mg/dL Near or above uzhzcpqVIJ366-659 mg/dL Borderline highLDL 160-189 mg/dL HighLDL greater than 189 mg/dL Very highCholesterol in VLDL Calc [Mass/Vol]Ordered By: Codi Brar on 15-55-7683Xlqdjmssive in VLDL [Mass/Vol]47 mg/dLDiley Ridge Medical CenterCreatinine [Mass/volume] in Serum or PlasmaOrdered By: Codi Brar on 08-84-8838Emtklqilgn [Mass/Vol]0.72 mg/dL0.60-1.20[facility] Medical CenterEosinophils Auto (Bld) [#/Vol]Ordered By: Codi Brar on 10-28-2023 Eosinophils (Bld) [#/Vol]0.1 10*3/uL0.0-0.45[facility] Eosinophils/100 WBC Auto (Bld)Ordered By: Codi Brar on 10-28-2023 Eosinophils/100 WBC (Bld)2.4 %.[facility] Medical CenterErythrocyte distribution width Auto (RBC) [Ratio]Ordered By: Codi Brar on 10-28-2023 Erythrocyte distribution width (RBC) [Ratio]12.7 %11.9-15.3FProtestant HospitalGlobulin Calc (S) [Mass/Vol]Ordered By: Codi Brar on 10-28-2023 Globulin (S) [Mass/Vol]2.7 g/dLDiley Ridge Medical CenterGlucose [Mass/volume] in Serum or PlasmaOrdered By: Codi Brar on 58-63-9462Kxhtpoz [Mass/Vol]98 mg/nG21-383YcubwmlvoDiley Ridge Medical CenterComment on above:ADA recommended reference rangeRandom Glucose Reference Range is dependent on time and content of last meal. Glucose of more than 200 mg/dL in a nonstressed, ambulatory subject supports the diagnosisof Diabetes Mellitus.Hematocrit Auto (Bld) [Volume fraction]Ordered By: Codi Brar on 50-58-5575Pejbvgsrin (Bld) [Volume fraction]39.7 %34.0-46.4FProtestant HospitalHemoglobin [Mass/volume] in BloodOrdered By: Codi Brar on 95-38-2658Lbpmukdscs (Bld) [Mass/Vol]13.5 g/dL11.8-15.4FProtestant HospitalLeukocytes [#/volume] corrected for nucleated erythrocytes in Blood by Automated coun Ordered By: Codi Brar on 64-91-0216YYG corrected for nucl RBC Auto (Bld) [#/Vol]4.9 10*3/uL3.8-11.6FProtestant HospitalLymphocytes Auto (Bld) [#/Vol]Ordered By: Codi Brar on 38-58-5763Utxdcffcjjk (Bld) [#/Vol]1.4 10*3/uL1.00-4.8[facility] Medical CenterLymphocytes/100 WBC Auto (Bld) Ordered By: Codi Brar on 81-75-8694Vencdplwsim/100 WBC (Bld)28.4 %.[facility] HospitalH Auto (RBC) [Entitic mass]Ordered By: Codi Brar on 42-47-1399LWU (RBC) [Entitic mass]31.5 pg24.7-34.3FProtestant HospitalMCHC Auto (RBC) [Mass/Vol]Ordered By: Codi Brar on 22-69-4510OJHF (RBC) [Mass/Vol]33.9 g/dL32.0-35.0[facility] CenterMCV Auto (RBC) [Entitic vol]Ordered By: Codi Brar on 68-05-9446PZR (RBC) [Entitic vol]92.7 lP10-352YywjlntkvDiley Ridge Medical CenterMonocytes Auto (Bld) [#/Vol]Ordered By: Codi Brar on 39-92-1895Yothpuyva (Bld) [#/Vol]0.4 10*3/uL0.0-0.8[facility] CenterMonocytes/100 WBC Auto (Bld)Ordered By: Codi Brar on 59-18-3172Fnjtvjogi/100 WBC (Bld)8.8 %.[facility] Neutrophils Auto (Bld) [#/Vol]Ordered By: Codi Brar on 36-52-7956Qywdasqurhs (Bld) [#/Vol]3.0 10*3/uL1.8-7.7FProtestant HospitalNeutrophils/100 WBC Auto (Bld)Ordered By: Codi Brar on 79-53-6710Jsyppzwckyz/100 WBC (Bld) 59.7 %.[facility] CenterNo Panel InformationOrdered By: Codi Brar on 69-67-2756Hlzswyqkg GFR (CKD-EPI)> 60.0 mL/MinDiley Ridge Medical CenterPharmacy Creatinine Clearance (ChemN/[facility]ille HospitalNucleated erythrocytes [Presence] in Blood by Automated countOrdered By: Codi Brar on 38-77-5698Hmxgigmrz RBC Auto Ql (Bld)0.2 /100{WBC}0-0.5FProtestant HospitalPlatelet mean volume Auto (Bld) [Entitic vol]Ordered By: Codi Brar on 29-37-1052Fjhlsabl mean volume (Bld) [Entitic vol]8.2 fL6.3-10.7 [facility] CenterPlatelets Auto (Bld) [#/Vol]Ordered By: Codi Brar on 90-61-5449Xmiriekje (Bld) [#/Vol]380 10*3/qH143-776AturwnvgtDiley Ridge Medical CenterPotassium [Moles/volume] in Serum or PlasmaOrdered By: Codi Brar on 33-71-1182Qnvlamzet [Moles/Vol]4.3 mmol/L3.5-5.1FProtestant HospitalProtein [Mass/volume] in Serum or PlasmaOrdered By: Codi Brar on 75-24-5846Jjubqjb [Mass/Vol]7.6 g/dL6.4-8.9[facility] RBC Auto (Bld) [#/Vol]Ordered By: Codi Brar on 57-32-5525OVF (Bld) [#/Vol] 4.28 10*6/uL3.60-5.00St. Elizabeth Hospitalerum or plasma albumin/globulin mass ratioOrdered By: Codi Brar on 10-28-2023 Albumin/Globulin [Mass ratio]1.8 {ratio}St. Elizabeth Hospitalerum or plasma anion gap determinationOrdered By: Codi Brar on 52-55-6968Xnhdz gap [Moles/Vol]10.3 mmol/L6.0-15.0St. Elizabeth Hospitalerum or plasma high density lipoprotein (HDL) cholesterol measurementOrdered By: Codi Brar on 99-25-4676Fqrspvpemtq in HDL [Mass/Vol]79 mg/iH82-05AlvlymqpsDiley Ridge Medical CenterComment on above:HDL CHOL ATP-III CLASSIFICATION Cardiovascular RiskHDL > or equal to 60 mg/dL LOWHDL < 40 mg/dL HIGHSerum or plasma total cholesterol/high density lipoprotein (HDL) cholesterol mass ratOrdered By: Codi Brar on 28-98-5562Ghllgchcans.total/Cholesterol in HDL [Mass ratio]2.6 {ratio}<5.0St. Elizabeth Hospitalodium [Moles/volume] in Serum or PlasmaOrdered By: Codi Brar on 18-46-4440Zzamte [Moles/Vol]139 mmol/C366-027 [facility] CenterThyrotropin [Units/volume] in Serum or Plasma Ordered By: Codi Brar on 57-84-4118DBO Qn1.45 m[IU]/L0.45-5.33[facility] Medical CenterTriglyceride [Mass/volume] in Serum or PlasmaOrdered By: Codi Brar on 08-65-7892Swrodfgmzrcb [Mass/Vol]236 mg/dLHigh0-149D[facility] Medical CenterComment on above:TRIG ATP III CLASSIFICATIONTRIG less than 150 mg/dL NormalTRIG 150-199 mg/dL Borderline highTRIG 200-500 mg/dL High TRIG greater than 500 mg/dL Very highStandard traceable to the Center for Disease Conrtrol and Prevention (CDC) test method.Urea nitrogen [Mass/volume] in Serum or PlasmaOrdered By: Codi Brar on 64-16-2739Jatw nitrogen [Mass/Vol]18 mg/dL7-25[facility] Medical CenterWBC Auto (Bld) [#/Vol]Ordered By: Codi Brar on 43-21-7863FCV (Bld) [#/Vol]4.9 10*3/uL3.8-11.6FProtestant HospitalCNOVon 64-18-4993HVKPBtzdye Visit (ORTHMN) TRANG CORNEJO ([id number]) 1965 F [place] Date Time Provider Department 06/10/23 3:15 PM DMITRY KILPATRCIK During your visit today, we recorded the following information about you: Dmitry Kilpatrick MD 06/10/2023 3:25 PM Signed Orthopaedic Oncology Follow-Up Clinic Note Last Clinic Visit: 12/29/2022 Diagnosis: Left Intramuscular Lipoma S: This visit represents a follow up clinical visit with Trang barbour. She is here today for follow up and to discuss MRI results. She reports no real changes on her end with regard to the mass. Still has a dull pain in her anterior thigh, but is also still plagued by posterior thigh/buttock - hamstring - pain. She reports her left leg will tire quicker with prolonged walking. If not necessary to remove, she would prefer not to have surgery. She is inquiring if she could continue to follow with Dr. Knox locally regarding her hamstring issues. Exam: LLE She has a doughy mass, over the mid anterior thigh compartment, deep to fascia, mobile, disappears with quadricep contraction. Normal femoral nerve strength. Benign hip and knee exam with normal and symmetric strength. No swelling. Very supple IT band, no IT band symptoms. No trochanteric bursitis. Mild tenderness to palpation over the ischial tuberosity with hip flexion. No resisted hamstring flexion pain is reproducible. Tumor/Lesion location:Mass is readily palpable - left anterior thigh, Approximate size: 10cm x 5cm; Location from pertinent anatomic landmarks - mid shaft femur; mobile, nontender to palpation, and deep to fascia Imaging: All new imaging available today that has been personally viewed and reports reviewed are as follows: 06/06/23 MRI left thigh --> Reviewed. There are no changes in the 7.5 cm intramuscular rectus femoris fatty tumor, left thigh. No concern for dedifferentiation. No surrounding muscle edema. Dimensions are similar in all planes compared to November 2022. November 2022 MRI imaging available - There is a 4.7cm x 1.8cm x 7.4 cm located in the rectus femoris muscle belly, intramuscular, deep to the fascia. No surrounding muscle edema. No concern for dedifferentiation. This suppresses with fat signal, and is homogeneous in quality. Of note, there is also hamstring tendinosis symptoms, without an overt tear, at the ischial tuberosity origin. No obvious abductor tendon tendinosis. A/P: - Plan to obtain another non-C femur MRI in 12 months. Order placed today. If it continues to show no major changes or growth, I would likely plan to follow-up as needed and will plan to educate her on red flag symptoms that would suggest reestablishing with us. She is not interested in having this surgically removed, as it does not hurt, it is not a cosmetic concern, it is showing no interval growth, and there are no concerns for malignancy. - Re: Hamstring concerns -- We could consider a referral to our sports medicine nonoperative colleagues, I would likely refer to Dr. Fox at [place]. An ultrasound-guided injection into the hamstring origin at the ischial tuberosity could be considered. She really is not limited by the pain, and would prefer to hold off at the present. I spent a total of 30 minutes on the date of the service which included xhqg-uf-ozox patient care, completing clinical documentation, obtaining and/or reviewing separately obtained history, performing a medically appropriate examination, counseling and educating the patient/family/caregiver, ordering medications, tests, or procedures, independently interpreting results (not separately reported), and communicating results to the patient/family/caregiver. The counseled portion is detailed in the plan, as above, that I have personally verified and edited as appropriate. Any information added by medical student, resident, nurse, STAMPING PRESS OPERATOR/PA-C that I have placed my signature directly below I have verified and either instructed them to document in a scribe function or document appropriately in the chart during the patient visit. Dmitry Kilpatrick MD pipe tester, [facility] Musculoskeletal Oncologist and Total Hip/Knee Surgeon June 10, 2023 3:24 PM Yasmin Matute RN 06/10/2023 3:25 PM Signed I served as a scribe during this office visit encounter. Yasmin Matute RN Allergies As of Date: 06/10/2023 Noted Allergy Reaction PENICILLINS 11/18/2022 4 - Hives 9 - Itching 2 - Rash Comments: Other Reaction(s): Fever SEASONAL ALLERGIES 12/29/2022 14 - Other: See Comments Date Reviewed: 06/10/2023 Reviewed by: Diamond Garcia OCCA - Fully Assessed Reason for Visit: Established Patient [175] Follow Up [171] Primary Visit Diagnosis:Lipoma of left lower extremity [D17.24] Order(s):MRI UPPER LEG WO IVCON LEFT [[id number]] Order #: [id number] FUTURE Prescriptions (more content not included)...NormalMagruder Hospitalon [id number] HEALTHHNO ID: [id number] Author: BRIAN SON MRI Tech Service: Radiology Author Type: Foreign Car Mechanic Type: Allied Health Filed: 06/06/2023 10:17 Note Text: Radiology Service Progress Note PATIENT NAME: Trang Cornejo DATE OF SERVICE: June 06, 2023 TIME: 10:07 AM PATIENT IDENTITY VERIFICATION COMPLETED USING TWO (2) IDENTIFIERS: Name and Date of confirmed by patient verbally and Name and Date of confirmed by identification band. FALL SCREENING: Has the patient had 2 falls in the last year or 1 fall with injury or currently using an Ambulatory Assistive Device (Walker, Cane, Wheelchair, Crutches, etc.)? No PATIENT GENDER DATA: Female. status: : No status: NO. PATIENT RELEVANT IMPLANT DATA REVIEWED: Yes PATIENT PRESENTS WITH AN IMPLANTABLE OR ATTACHED CD TECHNICIAN: No RADIOLOGY DEPARTMENT: MR; Exam(s) Completed: Lower MSK: Femur, left PERIPHERAL IV DATA: Not applicable SIGNED BY: JUAN CARLOS Aponte June 06, 2023 10:07 [facility] Thigh - left WO contraston [id number]: No significant interval change in benign-appearing 7.9 cm intramuscular lipomatous tumor within the left rectus femoris, lipoma versus atypical lipomatous tumor. Mild bilateral hamstring tendon origin and gluteus minimus/medius insertional tendinosis. Stock Holder: PSCB Transcribe Date/Time: Jun 06 2023 12:56P Dictated by : KATHLEEN PEGUERO MD This examination was interpreted and the report reviewed and electronically signed by: RIA CORTES MD on Jun 06 2023 5:48PM [facility] RADIOLOGY* * *Final Report* * * DATE OF EXAM: Jun 06 2023 10:05AM [facility] 0259 - MRI UPPER LEG WO IVCON LT / PROCEDURE REASON: Lipoma of left lower extremity * * * * Physician Interpretation * * * * EXAMINATION: MRI UPPER LEG WO IVCON LT HISTORY: Known intramuscular lipomatous tumor within the left rectus femoris musculature, follow-up imaging TECHNIQUE: Routine MRI of the left upper leg without contrast COMPARISON: MRI dated 12/06/2022 RESULT: A tissue marker was placed on the proximal aspect of the anterior left upper leg at the area of clinical concern. Deep to the tissue marker there is a circumscribed mass centered within the rectus femoris musculature which follows fat intensity signal on all sequences and corresponds to known lipomatous lesion. This is unchanged in size since the 12/06/2022 MRI, given differences in technique, again measuring approximately 5.1 x 1.8 x 7.9 cm (8:30 and 5:31). Linear areas of hypointense signal along the periphery of the mass relating to interdigitate muscle fibers are similar in appearance to prior. No evidence of internal nodularity. Subcutaneous fat is within normal limits. Muscle bulk and signal intensity are otherwise within normal limits. There is no organized fluid collection. Bone marrow signal intensity is within normal limits. Large field of view images of the joints are without overt abnormality. Mild tendinosis is noted at the bilateral hamstring origins as well as the gluteal minimus and medius insertions. There is mild thickening of the overlying trochanteric bursae bilaterally. Localizer images: No significant additional findings. CHARANJIT RADIOLOGYProvider, [facility] - 06/06/2023 * * *Final Report* * * DATE OF EXAM: Jun 06 2023 10:05AM [facility] 0259 - MRI UPPER LEG WO IVCON LT / PROCEDURE REASON: Lipoma of left lower extremity * * * * Physician Interpretation * * * * EXAMINATION: MRI UPPER LEG WO IVCON LT HISTORY: Known intramuscular lipomatous tumor within the left rectus femoris musculature, follow-up imaging TECHNIQUE: Routine MRI of the left upper leg without contrast COMPARISON: MRI dated 12/06/2022 RESULT: A tissue marker was placed on the proximal aspect of the anterior left upper leg at the area of clinical concern. Deep to the tissue marker there is a circumscribed mass centered within the rectus femoris musculature which follows fat intensity signal on all sequences and corresponds to known lipomatous lesion. This is unchanged in size since the 12/06/2022 MRI, given differences in technique, again measuring approximately 5.1 x 1.8 x 7.9 cm (8:30 and 5:31). Linear areas of hypointense signal along the periphery of the mass relating to interdigitate muscle fibers are similar in appearance to prior. No evidence of internal nodularity. Subcutaneous fat is within normal limits. Muscle bulk and signal intensity are otherwise within normal limits. There is no organized fluid collection. Bone marrow signal intensity is within normal limits. Large field of view images of the joints are without overt abnormality. Mild tendinosis is noted at the bilateral hamstring origins as well as the gluteal minimus and medius insertions. There is mild thickening of the overlying trochanteric bursae bilaterally. Localizer images: No significant additional findings. IMPRESSION IMPRESSION: No significant interval change in benign-appearing 7.9 cm intramuscular lipomatous tumor within the left rectus femoris, lipoma versus atypical lipomatous tumor. Mild bilateral hamstring tendon origin and gluteus minimus/medius insertional tendinosis. Stock Holder: RIYA Transcribe Date/Time: Jun 06 2023 12:56P Dictated by : KATHLEEN PEGUERO MD This examination was interpreted and the report reviewed and electronically signed by: RIA CORTES MD on Jun 06 2023 5:48PM [facility]Rad[facility] (n[facility]ative)[facility] Thigh - left WO contrastOrdered By: Ccf Provider on [id number] ClinicMRI UPPER LEG WO IVCON LTon [id number] UPPER LEG WO IVCON LT* * *Final Report* * * DATE OF EXAM: Jun 06 2023 10:05AM [facility] 0259 - MRI UPPER LEG WO IVCON LT / PROCEDURE REASON: Lipoma of left lower extremity * * * * Physician Interpretation * * * * EXAMINATION: MRI UPPER LEG WO IVCON LT HISTORY: Known intramuscular lipomatous tumor within the left rectus femoris musculature, follow-up imaging TECHNIQUE: Routine MRI of the left upper leg without contrast COMPARISON: MRI dated 12/06/2022 RESULT: A tissue marker was placed on the proximal aspect of the anterior left upper leg at the area of clinical concern. Deep to the tissue marker there is a circumscribed mass centered within the rectus femoris musculature which follows fat intensity signal on all sequences and corresponds to known lipomatous lesion. This is unchanged in size since the 12/06/2022 MRI, given differences in technique, again measuring approximately 5.1 x 1.8 x 7.9 cm (8:30 and 5:31). Linear areas of hypointense signal along the periphery of the mass relating to interdigitate muscle fibers are similar in appearance to prior. No evidence of internal nodularity. Subcutaneous fat is within normal limits. Muscle bulk and signal intensity are otherwise within normal limits. There is no organized fluid collection. Bone marrow signal intensity is within normal limits. Large field of view images of the joints are without overt abnormality. Mild tendinosis is noted at the bilateral hamstring origins as well as the gluteal minimus and medius insertions. There is mild thickening of the overlying trochanteric bursae bilaterally. Localizer images: No significant additional findings. IMPRESSION: No significant interval change in benign-appearing 7.9 cm intramuscular lipomatous tumor within the left rectus femoris, lipoma versus atypical lipomatous tumor. Mild bilateral hamstring tendon origin and gluteus minimus/medius insertional tendinosis. Stock Holder: RIYA Transcribe Date/Time: Jun 06 2023 12:56P Dictated by : KATHLEEN PEGUERO MD This examination was interpreted and the report reviewed and electronically signed by: RIA CORTES MD on Jun 06 2023 5:48PM EST [id number] West Medical Center [id number] Visit (ORTHMN) TRANG CORNEJO ([id number]) 1965 F [place] Date Time Provider Department 12/29/22 9:30 AM DMITRY KILPATRICK During your visit today, we recorded the following information about you: Weight Height 67.1 kg 1.676 m Dmitry Kilpatrick MD 12/29/2022 10:43 AM Signed Orthopaedic Oncology New Patient Note Date: December 29, 2022 Attending Provider: Dr. Dmitry Kilpatrick Referring Physician(s): Dr. Raj Knox Chief Complaint: Left thigh intramuscular mass HPI: Tranggabriella Cornejo is a 57 year old female who presents today with a reported left thigh intramuscular mass, lipoma. I will highlight that the patient?s past medical history is largely unremarkable. The reported current symptoms first began approximately 4 years(s) ago. She first thought she had pulled a muscle and thought the bulge was a muscle herniation and didn't think anything of it. Medical attention was first sought with her PCP who referred to ortho, after she most recently felt it had been growing all this time. She was seen at [facility] ortho (Dr. Raj Knox). She states she has twinges/aching in the posterior thigh. She has trouble getting her leg to move especially motivating forward. She has had no treatment or evaluation. She has no pain or tenderness with direct palpation of the mass. MRI was performed, showing a 2 x 5 x 7cm mass located in the rectus femoris. Since first being noted, the mass has increased in size. When it was first discovered, the mass was approximately the size of a quarter/half dollar, and is now approximately 2-3 times the size. She reports she also feels a second mass, more proximal, and would like this evaluated today, as well. The patient denies any pain symptoms directly with the mass. She reports she has an aching pain in her posterior thigh. Sometimes sitting is worse and then more difficult to propel forward. Miscellaneous concurrent symptoms: The patient denies: nausea, vomiting, decreased appetite, fever, chills, night sweats, and unexplained weight loss Other Pertinent History: as above Assist Device: No Previous Personal Malignancy/MSK disorder? NO Previous surgery for this problem? NO Prior radiation therapy for any reason? NO Body Location of the Radiation Treatment (if applicable): N/A Prior chemotherapy for any reason? NO Working Status: Retired - manager discoverychemistry account manager Situation: Preoperative Ambulatory Status: Independent Community Distances Number of Entry Steps: 2 Bedroom Location: First floor Bathroom Location: First floor Caregiver Assistance: Consistent/Live-In (5-7 days/wk) Home Location: Up to 150 miles Pertinent Past Medical History: PAST MEDICAL HISTORY Diagnosis Date Hypertension Pertinent Past Surgical History: PAST SURGICAL HISTORY Procedure Laterality Date SECTION HX PAST SURGICAL HISTORY OF trigger finger release - thumb x2 PAST SURGICAL HISTORY OF carpal tunnel release Medications: Current Outpatient Medications Medication Sig Dispense Refill vitamin D3-vitamin K2 (DOSOKAP) 137.5-200 mcg tab escitalopram oxalate (LEXAPRO) 10 mg tablet Take 1 tablet by mouth every afternoon. estradiol (ESTRACE) 0.01 % (0.1 mg/gram) vaginal cream APPLY A PEA SIZED DOLLOP ON TIP OF FINGER TO THE OUTSIDE OF VAGINA AND SWIPE INTO VAGINA ONCE A DAY losartan (COZAAR) 50 mg tablet Take 1 tablet by mouth every afternoon. rosuvastatin (CRESTOR) 20 mg tablet Take 1 tablet by mouth every afternoon. zolpidem (AMBIEN) 5 mg tablet TAKE 1 TABLET BY MOUTH EVERYDAY AT BEDTIME NEEDED FOR SLEEP metoprolol succinate ER (TOPROL XL) 25 mg 24 hr tablet Take 25 mg by mouth. No current facility-administered medications for this visit. Allergies: ALLERGIES Allergen Reactions Penicillins Hives, Itching, Rash Other Reaction(s): Fever Seasonal Allergies Other: See Comments Social History: Social History Tobacco Use Smoking status: Never Passive exposure: Never Smokeless tobacco: Never Home Situation: lives at home with SO. Single story dwelling Occupation: retired Hobbies: gardening Family History: FAMILY HISTORY Problem Relation Age of Onset Colon Cancer Paternal Grandmother Health Maintenance: Breast Exam: N/A Cardiac Testing: N/A Review of Systems: A complete 12-point review of systems was undertaken on our new patient intake form. It was unremarkable, except for the highlighted pertinent positives: General: High Blood Pressure Respiratory: Denies coughing up blood, shortness of breath, chest pain with deep breath, cough producing mucus and home oxygen. Genitourinary: Denies pain with urination, unusual fluid leaking from bladder, flank pain, increased frequency of urination, irregular menses, pelvic pain and blood in urine Cardiovascular: Denies chest pain at rest, chest pain with exertion, rapid heart beat, pal (more content not included)...[facility] [id number] 21-52-4097Uwufkufm report Cyto stain Doc (Cvx/Vag)NoteInvalid Interpretation [facility] CenterComment on above:Result Comment: TESTS RESULT FLAG UNITS REF RANGE LAB Clinician Provided Cytology Information Source.............Endocervix No. of containers..01 ThinPrep Vial DIAGNOSIS: 01 NEGATIVE FOR INTRAEPITHELIAL LESION OR MALIGNANCY. Specimen adequacy: 01 Satisfactory for evaluation. No endocervical component is identified. Performed by: 01 Sukhdeep Rubio, Hairspring Assembler ([facility]) . 01 Note: Note 01 The Pap smear is a screening test designed to aid in the detection of premalignant and malignant conditions of the uterine cervix. It is not a diagnostic procedure and should not be used as the sole means of detecting cervical cancer. Both false-positive and false-negative reports do occur. Test Methodology: Note 01 This liquid based ThinPrep(R) pap test was screened with the use of an image guided system. FLAG LEGEND: L-Low Normal,H-High Normal,LL-Alert Low,HH-Alert High <-Panic Low,>-Panic High,A-Abnormal,AA-Critical Abnormal Performed at: [address] [address] Radha Pedro MD, Qbgatmemq By: #### [id number] #### [facility] [address], [place] [address]UBK 16+18+31+33+35+39+45+51+52+56+58+59+66+68 DNA Probe+sig amp Ql (Cvx)NegativeInvalid Interpretation CodeNegativeFisher [facility] Comment on above:Result Comment: This nucleic acid amplification test detects fourteen high-risk HPV types (16,18,31,33,35,39,45,51,52,56,58,59,66,68) without differentiation. Performed at: [facility] [address], [place] [id number] MD Willis Garcia Performed at: =G [facility] [address], [place] [id number] MD Willis GarciaPerformed By: #### [id number] #### [facility] [address], [place] [address]XOF [id number] 90-15-7167Tbbfsyppqh TechniqueBRUSH-SPATULANormal [facility] HospitalComment on above:Performed By: #### [id number] #### [facility] [address], [place] [address]Xhbbedobrhnjt Body SiteENDOCERVIXNoMercy Health Perrysburg HospitalComment on above:Performed By: #### [id number] #### [facility] [address], [place] [address]Ricfesbbs Orderon 87-06-8214Mfncufroy Order [id number]#1.00TIFMansfield HospitalAlanine aminotransferase [Enzymatic activity/volume] in Serum or Plasma Ordered By: [facility] on 90-30-5259QYU [Catalytic activity/Vol]19 U/L 7-52[facility] CenterAlbumin [Mass/volume] in Serum or Plasma by Bromocresol green (BCG) dye binding methoOrdered By: [facility] on 00-24-6595Shhepig BCG dye [Mass/Vol]4.8 g/dL3.5-5.7FProtestant HospitalAlkaline phosphatase [Enzymatic activity/volume] in Serum or PlasmaOrdered By: [facility] on 71-36-2013OAD [Catalytic activity/Vol]82 U/L34-104 [facility] CenterAspartate aminotransferase [Enzymatic activity/volume] in Serum or PlasmaOrdered By: [facility] on 10-30-2022 AST [Catalytic activity/Vol]16 U/H35-22DebqmwvmuDiley Ridge Medical Center Bilirubin.total [Mass/volume] in Serum or PlasmaOrdered By: [facility] on 96-95-9608Hgyfmvgzb [Mass/Vol]0.5 mg/dL0.3-1.0[facility] CenterCalcium [Mass/volume] in Serum or PlasmaOrdered By: [facility] on 25-59-5547Eloykoe [Mass/Vol]10.0 mg/dL8.6-10.3FProtestant Hospital Carbon dioxide, total [Moles/volume] in Serum or PlasmaOrdered By: [facility] on 20-52-6736OL3 [Moles/Vol]29.3 mmol/L21.0-31.0[facility] CenterChloride [Moles/volume] in Serum or PlasmaOrdered By: [facility] on 97-94-6253Lqndupgv [Moles/Vol]104 mmol/Q08-826ShyygamojDiley Ridge Medical CenterCholesterol [Mass/volume] in Serum or PlasmaOrdered By: [facility] on 66-02-0237Felcckgbmwj [Mass/Vol]309 mg/sL528-246VqxcjrazxDiley Ridge Medical CenterComment on above:Chol less than 200 mg/dl low riskChol 201-239 mg/dl borderline riskChol 240 mg/dl and greater high riskCholesterol in LDL Calc [Mass/Vol]Ordered By: [facility] on 00-99-9498Ofdpddtsyjc in LDL [Mass/Vol]204 mg/dL0-100[facility] CenterComment on above:LDL ATP III CLASSIFICATIONLDL less than 100 mg/dL OptimalLDL 100-129 mg/dL Near or above vpofpixFZE466-780 mg/dL Borderline highLDL 160-189 mg/dL HighLDL greater than 189 mg/dL Very highCholesterol in VLDL Calc [Mass/Vol]Ordered By: [facility] on 43-92-0390Rfilbngpgnx in VLDL [Mass/Vol]35 mg/dLDiley Ridge Medical CenterCreatinine [Mass/volume] in Serum or PlasmaOrdered By: [facility] on 08-72-7340Djviqcpari [Mass/Vol]0.74 mg/dL0.60-1.20[facility] CenterErythrocyte distribution width Auto (RBC) [Ratio]Ordered By: [facility] on 33-33-6887Ypetnwlnajh distribution width (RBC) [Ratio] 12.6 %11.9-15.3[facility] CenterGlucose [Mass/volume] in Serum or PlasmaOrdered By: [facility] on 76-90-2202Czyrwyk [Mass/Vol]91 mg/dL 70-100[facility] CenterComment on above:ADA recommended reference rangeRandom Glucose Reference Range is dependent on time and content of last meal. Glucose of more than 200 mg/dL in a nonstressed, ambulatory subject supports the diagnosisof Diabetes Mellitus.Hematocrit Auto (Bld) [Volume fraction]Ordered By: [facility] on 21-65-9594Yurywpeoch (Bld) [Volume fraction]40.3 %34.0-46.4FProtestant HospitalHemoglobin [Mass/volume] in BloodOrdered By: [facility] on 01-24-1114Opwqrmebzj (Bld) [Mass/Vol]13.9 g/dL11.8-15.4FProtestant HospitalLeukocytes [#/volume] corrected for nucleated erythrocytes in Blood by Automated coun Ordered By: [facility] on 71-37-5028RKX corrected for nucl RBC Auto (Bld) [#/Vol]4.8 10*3/uL3.8-11.6FTrinity Health System West CampusH Auto (RBC) [Entitic mass]Ordered By: [facility] on 74-80-7734GAM (RBC) [Entitic mass]31.5 pg24.7-34.3FTrinity Health System West CampusHC Auto (RBC) [Mass/Vol] Ordered By: [facility] on 68-87-5025XDTY (RBC) [Mass/Vol]34.6 g/dL 32.0-35.0[facility] CenterMCV Auto (RBC) [Entitic vol]Ordered By: [facility] on 06-78-6160EAJ (RBC) [Entitic vol]91.2 bW50-331 [facility] CenterNo Panel InformationOrdered By: [facility] on 03-86-4511Bsapzxssx GFR (CKD-EPI)> 60.0 mL/MinDiley Ridge Medical CenterPharmacy Creatinine Clearance (ChemN/AFProtestant HospitalPlatelet mean volume Auto (Bld) [Entitic vol]Ordered By: [facility] on 57-85-5334Rssamnvs mean volume (Bld) [Entitic vol]8.0 fL6.3-10.7 [facility] CenterPlatelets Auto (Bld) [#/Vol]Ordered By: [facility] on 20-42-9893Vygrioqlw (Bld) [#/Vol]377 10*3/dJ766-817 [facility] CenterPotassium [Moles/volume] in Serum or Plasma Ordered By: [facility] on 31-00-2147Wthoqvwzq [Moles/Vol]4.5 mmol/L 3.5-5.1FProtestant HospitalProtein [Mass/volume] in Serum or Plasma Ordered By: [facility] on 35-60-6411Ipbqsdb [Mass/Vol]7.5 g/dL6.4-8.9 [facility] CenterRBC Auto (Bld) [#/Vol]Ordered By: [facility] on 21-64-5914KWA (Bld) [#/Vol]4.42 10*6/uL3.60-5.00St. Elizabeth Hospitalerum or plasma anion gap determinationOrdered By: [facility] on 76-40-5311Tuqks gap [Moles/Vol]12.2 mmol/L6.0-15.0St. Elizabeth Hospitalerum or plasma high density lipoprotein (HDL) cholesterol measurementOrdered By: [facility] on 39-08-0942Ubnzbqlhusu in HDL [Mass/Vol]70 mg/vE18-32EjadhujzjDiley Ridge Medical CenterComment on above: HDL CHOL ATP-III CLASSIFICATION Cardiovascular RiskHDL > or equal to 60 mg/dL LOWHDL < 40 mg/dL HIGHSerum or plasma total cholesterol/high density lipoprotein (HDL) cholesterol mass ratOrdered By: [facility] on 10-30-2022 Cholesterol.total/Cholesterol in HDL [Mass ratio]4.4 {ratio}<5.0St. Elizabeth Hospitalodium [Moles/volume] in Serum or PlasmaOrdered By: [facility] on 89-72-4975Tpnvdm [Moles/Vol]141 mmol/L219-625GiuqokfjqDiley Ridge Medical CenterThyrotropin [Units/volume] in Serum or PlasmaOrdered By: [facility] on 52-43-8035DTA Qn2.10 m[IU]/L0.45-5.33[facility] CenterTriglyceride [Mass/volume] in Serum or PlasmaOrdered By: [facility] on 60-27-5944Tekvjkcbcgcg [Mass/Vol]176 mg/dL0-149[facility] CenterComment on above:TRIG ATP III CLASSIFICATIONTRIG less than 150 mg/dL NormalTRIG 150-199 mg/dL Borderline highTRIG 200-500 mg/dL High TRIG greater than 500 mg/dL Very highStandard traceable to the Center for Disease Co nrtrol and Prevention (CDC) test method.Urea nitrogen [Mass/volume] in Serum or PlasmaOrdered By: [facility] on 61-48-3295Khxt nitrogen [Mass/Vol]20 mg/dL7-25[facility] CenterVitamin D+Metabolites [Mass/volume] in Serum or PlasmaOrdered By: [facility] on 08-68-4496Cblzkmu D+Metabolites [Mass/Vol]55.8 ng/tK66-302XdmatgznpDiley Ridge Medical CenterComment on above:VITAMIN D STATUS 25(OH)VITAMIN D RANGE (ng/mL) Deficient <20 Insufficient 20 to <63Gkhywoqoqb71 to 100Reference: Celestino MF,Tae NC, Zeynep WRIGHT, et al. Evaluation,treatment, and prevention of vitamin D deficiency; an Endocrine Society clinical practice guideline. JCEM. 2010; 96 (7):1911-30.MG MAMM SCREEN 3D ZAMZAM CADon 06-33-0567ES MAMM SCREEN 3D ZAMZAM CAD Patient: TRANG CORNEJO Exam Date: 12/14/2021 : 1965 Gender:F Ordering : DR ENDER [facility] Admission #: [id number] Family : DR CODI BRAR M.D. Order #: [id number] CLICK HERE TO VIEW EXAM RADIOLOGY REPORT PROCEDURE: MAMMOGRAM SCREENING 3D BILATERAL CAD COMPARISON: MG MAMM RT DIAG W CAD, 02/14/2020. MG MAMM SCREEN 3D ZAMZAM CAD, 12/12/2020. INDICATIONS: Screening mammography Calculator Name NCI Breast Cancer Risk Assessment Tool 5 Year Breast Cancer Risk 0.80% Lifetime Breast Cancer Risk 5.20% Personal Breast Cancer No Personal Ovarian Cancer No Treatments None Family Cancers None LOCATION: [facility] BREAST COMPOSITION: Heterogeneously dense,which may obscure small masses. FINDINGS: DIAGNOSTIC CATEGORY 1--NEGATIVE. NO CHANGE FROM COMPARISON ASSESSMENT. Scattered benign-appearing nodules are present. Scattered benign-appearing calcifications are present. Scattered benign-appearing lymph nodes are present. RIGHT BREAST: No significant suspicious finding. LEFT BREAST: No significant suspicious finding. RECOMMENDATIONS: ROUTINE MAMMOGRAM AND CLINICAL EVALUATION IN 12 MONTHS. PLEASE NOTE: A NORMAL MAMMOGRAM DOES NOT EXCLUDE THE POSSIBILITY OF BREAST CANCER. A CLINICALLY SUSPICIOUS PALPABLE LUMP SHOULD BE BIOPSIED. Dictated by: Raj Hansen MD on 12/14/2021 at 14:09 Approved by: Raj Hansen MD on 12/14/2021 at 14:11[facility] ECHOCARDIO M/2D COMPLETEon 44-19-7962KNKPREFTVU M/2D COMPLETEPatient: TRANG CORNEJO Exam Date: 10/16/2021 : 1965 Gender:F Ordering : DR CODI BRAR M.D. Admission #: [id number] Family : Order #: [id number] CLICK HERE TO VIEW EXAM ECHOCARDIOGRAM REPORT PROCEDURE: CARDIO PULMONARY ECHOCARDIO M/2D COMP INDICATIONS: Cardiac murmur, hypertension COMPARISON: None. DESCRIPTION: COMPLETE ECHOCARDIOGRAM Real-time transthoracic echocardiography with 2D, M-mode, spectral and color flow Doppler performed. QUALITY: Technical quality was good. 66 155# BP 156/98 LEFT VENTRICLE: Normal chamber size. Thickened septal wall. LV EF: Global left ventricular systolic function is hyperdynamic; visually estimated ejection fraction is 65 to 70%. No significant wall motion abnormalities. DIASTOLIC: Diastolic function is indeterminate. ATRIAL SEPTUM: Visually appears intact. LEFT ATRIUM: Normal chamber size. RIGHT ATRIUM: Normal chamber size. RIGHT VENTRICLE: Poorly seen; appears normal in size. Normal right ventricular systolic function. TRICUSPID VALVE: Normal mobility and thickness. No stenosis with mild regurgitation. Doppler studies reveal moderately (45-60) elevated right sided pressures. RVSP 59 mmHg MITRAL VALVE: Normal mobility and thickness. No evidence of mitral valve stenosis. There is no mitral annular calcification. No mitral regurgitation. AORTIC VALVE: Normal aortic valve. No visible sclerosis. Normal leaflet mobility. No evidence of aortic valve stenosis. No aortic regurgitation. AORTIC ROOT: Normal diameter and appearance. PULMONIC VALVE: Normal thickness and mobility. No stenosis. No regurgitation. PERICARDIUM: No evidence of pericardial effusion. IVC: Collapses with inspirations. IVC is normal in size. CONCLUSION: Global left ventricular systolic function is hyperdynamic; visually estimated ejection fraction is 65 to 70%. No significant wall motion abnormalities. The right ventricle is poorly seen; appears normal in size and systolic function. Diastolic function is indeterminate. Mild tricuspid regurgitation. Moderately elevated right-sided pressures. Adult Echocardiography Procedure Report Left Ventricle Left Atrium Mitral Valve Right Ventricle Aorta Aortic Valve Peak Velocity (Antegrade Flow): 1.50 m/s, 1.47 m/s, 1.50 m/s, 1.47 m/s AoV Area (Peak Mati): 3.65 cm2, 3.61 cm2 Tricuspid Valve Peak Velocity (Regurgitant Flow): 3.76 m/s Peak Velocity: 0.52 m/s Pulmonic Valve Peak Velocity: 0.93 m/s Peak Gradient: 3.48 mm[Hg] Right Atrium Dictated by: Alberto Bravo M.D. on 10/16/2021 at 15:47 Approved by: Alberto Bravo M.D. on 10/16/2021 at 15:50[facility] HospitalXR CHEST 2 Von 86-74-2259YP CHEST 2 VEXAM: CHEST 2 VIEWS HISTORY: Dyspnea TECHNIQUE: PA and lateral views chest. COMPARISON: None. FINDINGS: The lungs are clear. There is no focal lung consolidation, pleural effusion or pneumothorax. Pulmonary vasculature is within normal limits. The cardiomediastinal silhouette is normal. IMPRESSION: 1. Clear lungs without acute cardiopulmonary disease. 2. Normal heart size. Electronically authenticated by: OPAL CASTLE Date: 2021-10-16 13:11[facility] HospitalXR TSPINE 3 VIEWSon 55-29-0864HV TSPINE 3 VIEWSEXAMINATION: XR TSPINE 3 VIEWS HISTORY: Pain in thoracic spine COMPARISON: No relevant comparison available. FINDINGS: BONES: Normal alignment of the thoracic spine with no acute fracture or spondylolisthesis. Mild diffuse degenerative spondylosis DISC SPACES: Mild multilevel disc space narrowing PARASPINOUS: Negative. No paraspinous abnormality is seen. OTHER: Moderate degenerative changes of the cervical spine IMPRESSION: Mild diffuse degenerative changes of the thoracic spine Electronically authenticated by: RAJ HANSEN Date: 2021-10-16 17:38[facility] HospitalLaboratory - Microbiology and Antimicrobial susceptibilityon 05-23-2021. pyogenes Ag IA Ql (Unsp spec)[facility] Vital Signs Date TimeVital SignValuePerforming KlvcfvzarJmkgtbgr03-87-3024 10:23-0400Body jugxwb181.64 cmCodi Brar MD Work Phone: [facility]08-29-2025 10:23-0400 Body mass index (BMI) [Ratio]24.9 kg/g5GyojrsCodi Brar MD Work Phone: [phone]08-29-2025 10:23-0400 Body xomibs01.96 kgCodi Brar MD Work Phone: [phone]55[facility]08-29-2025 10:23-0400 Diastolic blood rrusajrs75 mm[Hg]Codi Brar MD Work Phone: [phone]08-29-2025 10:23-0400 Heart rate70 /minCodi Brar MD Work Phone: [phone] [place], [place] [address]708-29-2025 10:23-0400 Respiratory rate12 /minCodi Brar MD Work Phone: [phone]08-29-2025 10:23-0400 SaO2% (BldA) [Mass fraction]97 %Codi Brar MD Work Phone: [phone]08-29-2025 10:23-0400 Systolic blood jdadhdum519 mm[Hg]Codi Brar MD Work Phone: [phone]08-02-2024 13:14-0400 Body bjhecwyxgim49.2 [degF]Matthew Winchester DPM Work Phone: [facility] SystemWiavwasssc15-80-5365 13:14-0400Diastolic blood gxwkwxwo75 mm[Hg]Matthew Winchester DPM Work Phone: [facility] SystemGuvqhcryiy06-10-0031 13:14-0400Heart rate83 /min Matthew Winchester DPM Work Phone: [facility] SystemUiswjbfugf70-27-6904 13:14-0400Systolic blood gohzucqv454 mm[Hg]Matthew Winchester DP Work Phone: [facility] SystemTfmxpuevte20-90-3930 09:03-0400Body xwulio094.64 cmDiley Ridge Medical Center05-21-2024 09:03-0400Body mass index (BMI) [Ratio]24.9 kg/v2PjdymswviDiley Ridge Medical Center05-21-2024 09:03-0400Body dufzbs09.02 kgDiley Ridge Medical Center05-21-2024 09:03-0400Diastolic blood jkysybbt37 mm[Hg][facility]05-21-2024 09:03-0400 Heart rate74 /[facility]05-21-2024 09:03-0400Systolic blood otvwaseo024 mm[Hg][facility]11-15-2023 09:25-0500 Body poygml213.6 cmDmitry Kilpatrick MD Work Phone: c[facility] SystemTqqfse21-84-7447 09:25-0500Body qfxajd66.13 kgDmitry Kilpatrick MD Work Phone: c[facility] Health SystemIbaize19-00-1634 11:30-0400Body pedwrr417.64 cmCodi Brar Other [employer] Other 09-26-2023 11:30-0400Body mass index (BMI) [Ratio] 24.53 kg/x5DwvvgoCodi Brar Other [employer] Other 09-26-2023 11:30-0400Body hrnoov98.95 kgCodi Brar Other [employer] Other 09-26-2023 11:30-0400Diastolic blood miratwcd04 mm[Hg] Codi Brar Other [employer] Other 09-26-2023 11:30-0007OpO0% (BldA) [Mass fraction]98 % Codi Brar Other [employer] Other 09-26-2023 11:30-0400Systolic blood mm[Hg] Codi Brar Other [facility] [employer] Other 04-09-2022 08:36-0400Body ngxkcmwozgu55.7 [degF] [facility] Physician Ntsjddze52-64-2181 08:36-0400Diastolic blood zhmasfuk15 mm[Hg][facility]ician Geuuscdh08-57-2526 08:36-0400Heart rate90 /min [facility] Bvgqqjsv84-97-6066 08:36-0400Respiratory rate20 /min [facility]ician Qewqzgze89-12-1285 08:36-5776YmO1% (BldA) [Mass fraction]99 %[facility] Physician Ibmjpuyb18-36-7316 08:36-0400Systolic blood lypehjkh103 mm[Hg][facility] Encounters Encounter DateEncounter TypeCare ProviderFacilityStart: 11-12-2024 End: 08-97-0577Eawlpz flowsheetNatalie A Felter SAND CLEANING MACHINE OPERATOR-STAMPING PRESS OPERATOR Work Phone: [facility] DermatologyStart: 11-12-2024 End: 67-35-2888Ppyuqx flowsheetNatalie A Felter SAND CLEANING MACHINE OPERATOR-STAMPING PRESS OPERATOR Work Phone: noHI Jorge DermatologyStart: 11-12-2024 End: 96-49-0640grjmswluhzCYUMCDM A FELTERNot AvailableStart: 11-12-2024 End: 40-66-2365Xlowsw outpatient visit 15 minutesNatalie A Felter SAND CLEANING MACHINE OPERATOR-STAMPING PRESS OPERATOR Work Phone: noHI [place] DermatologyComment on above:Seborrheic keratosis (Primary Dx); Lentigines; Capillary angioma; Prurigo nodularis; Melanocytic nevus of trunk; DermatofibromaStart: 11-05-2024 End: 77-35-2693Rdkhudw encounter procedureCodi Brar MD-Melody Scribner Work Phone: Start: 11-05-2024 End: 57-19-6235pgaykrouwmBlnxnn E Braun MD Work Phone: [facility] Work Phone: Start: 47-57-4152Lgemzscyk for general adult medical examination without abnormal findingsCodi Saleem [facility] Start: 10-12-2024 End: 75-56-2959qgqkxjeidwFirbav E Braun MD Work Phone: [facility] Work Phone: Start: 10-12-2024 End: 94-22-5426Omnapzg encounter procedureCodi Brar MD-[facility] Work Phone: Start: 81-81-5583pkyilxhpvnFJUQTZ E BRAUNFacility:[facility] Hospitaltart: 05-01-2024 End: 15-96-0379Qftaarujqe hospital visit by physicianMr [facility] 2 (Istat/1.5) Work Phone: [facility] Radiology MRIComment on above:Lipoma of left lower extremity [D17.24]Start: 01-19-2024 End: 86-77-2779Dnsbyg flowsheetNatalie A Felter SAND CLEANING MACHINE OPERATOR-STAMPING PRESS OPERATOR Work Phone: noms [facility] DERMStart: 01-19-2024 End: 62-17-1263Zvkjry flowsheetNatalie A Felter SAND CLEANING MACHINE OPERATOR-STAMPING PRESS OPERATOR Work Phone: noms SWS DERMStart: 01-19-2024 End: 02-38-4355Xvcaop outpatient visit 15 minutesNatalie A Felter SAND CLEANING MACHINE OPERATOR-STAMPING PRESS OPERATOR Work Phone: noms SWS DERMComment on above:Bug bite without infection, subsequent encounter (Primary Dx); Nonvenomous insect bite of lower extremity, unspecified laterality, subsequent encounterStart: 01-19-2024 End: 66-46-8504vpkqnbvfglDSVQOZC A FELTERNot AvailableStart: 12-01-2023 End: 23-08-2210Efakmp flowsheetEugene Felipe Winchester DPM Work Phone: noms [facility] PODIATRYStart: 12-01-2023 End: 05-30-4354Linkgb flowsheetEugene Felipe Hartleyz DPM Work Phone: noms [facility] PODIATRYStart: 12-01-2023 End: 67-40-1238Mzwoeg outpatient visit 15 minutesEugene R Odiliaz DPM Work Phone: noms [facility] PODIATRYComment on above:Onychomycosis (Primary Dx); Cellulitis of great toe, rightStart: 12-01-2023 End: 45-27-2494ncupfaocrsPJTYUQ R KURAYZNot AvailableStart: 11-10-2023 End: 53-42-8758Qhncch outpatient visit 15 minutesNatalie A Felter SAND CLEANING MACHINE OPERATOR-STAMPING PRESS OPERATOR Work Phone: noms [facility] DERMComment on above:Lipoma of lower extremity, unspecified laterality (Primary Dx); Seborrheic keratosis; Lentigines; Capillary angioma; Dermatofibroma; Insect bite of abdomen, initial encounter; Actinic keratosisStart: 10-28-2023 End: 76-52-9381hudeuewglpLX Codi Brar Work Phone: [facility] Work Phone: Start: 10-28-2023 End: 55-90-6710Fkjxalq encounter procedureMD Codi Brar Work Phone: [facility] [employer] Work Phone: Start: 10-27-2023 End: 47-87-9221Obqgjh flowsheetNatalie A Felter SAND CLEANING MACHINE OPERATOR-STAMPING PRESS OPERATOR Work Phone: noms SWS DERMStart: 10-27-2023 End: 47-53-6550Yzycvb flowsheetNatalie A Felter SAND CLEANING MACHINE OPERATOR-STAMPING PRESS OPERATOR Work Phone: noms SWS DERMStart: 10-27-2023 End: 08-38-2164Lmdzob outpatient new 30 minutesNatalie A Felter SAND CLEANING MACHINE OPERATOR-STAMPING PRESS OPERATOR Work Phone: noms SWS DERMComment on above:Insect bite of abdomen, initial encounter (Primary Dx); Notalgia parestheticaStart: 09-16-2023 End: 50-04-6888Idjxpl outpatient new 30 minutesEugene Felipe Winchester DPM Work Phone: noms SWS PODIATRYComment on above:Cellulitis of great toe, right (Primary Dx); Onychomycosis; Numbness of toesStart: 82-31-2985Fxxzfua encounter statusSt. Elizabeth Hospitaltart: 07-05-2023 End: 66-97-4572cgjaivitdfAcykiaugiPike Community Hospital Work Phone: Start: 07-05-2023 End: 91-53-3699Aifjzzz encounter procedureFormerly [facility]Tr[facility] Work Phone: Start: 06-10-2023 End: 58-59-4638eykczvbckyLUPNIB W MESKOFacility:[facility]art: 11-91-6850vusgsjrjiyORBEVW W MESKOFacility:[facility]: 06-06-2023 End: 57-30-7858Sewmvuzdtt hospital visit by physicianPomerene Hospital 2 (Istat/1.5) Work Phone: [facility] Radiology MRIComment on above:Lipoma of left lower extremity [D17.24]Start: 10-60-5351Dkx-patient / Non-visitFirshenandoah memorial hospital Physician GroupCity Emergency Hospital Professional [facility] Work Phone: Start: 01-21-2023(Televisit) TelevisitCodi BrarBarnesville Hospitaltart: 01-21-2023 End: 07-64-1850soopqrqaxoBkxgwy Braun Other [facility] [employer] Other Start: 28-88-4863Icnydxzka encounterCodi BrarBarnesville Hospitaltart: 01-05-2023 End: 86-63-5136pyqaznmitcMazntb Braun Other [employer] Other Start: 92-01-3207Olgwbynhc encounterCodi Baeza [facility]: 01-03-2023 End: 64-75-1896ihlydbzudcIuabbh Braun Other noLectorati [employer] Other Start: 76-93-2848Idqexpctz encounterCodi Baeza [facility] ClinicStart: 12-31-2022 End: 29-60-2889qfluqbfoqaAtvyaj Braun Other [employer] Other Start: 07-27-6081Zkdceavoa encounterCodi Rucker [facility]: 12-29-2022 End: 74-51-0373yqmoayipcdQTAHRW W MESKOFacility:[facility]tart: 12-29-2022 End: 14-70-6300Pfsxvas encounter procedureDmitry Kilpatrick MD Work Phone: OrthopaedicsComment on above:Lipoma of left lower extremity (Primary Dx)Start: 12-17-2022 End: 62-95-2144vxmuccfqerJapiaf J LampeFacility:FTMCStart: 11-23-2022 End: 79-38-4399xtqiwdbqqsEH Codi Brar Work Phone: [facility] Work Phone: Start: 11-23-2022 End: 96-71-3181Seqzfyaz ReferredMD Codi Brar Work Phone: [facility] Work Phone: Start: 11-09-2022 End: 16-21-1286mwhfhqawqaFqwvuc Braun Other [facility] [employer] Other Start: 30-68-0916Csvrgyltt for general adult medical examination without abnormal findingsCodi Chaim [facility] ClinicStart: 94-27-3434Yhkryrln preventive med est patient 40-64yrsMarcia BraunFPG [facility] ClinicStart: 10-30-2022 End: 18-03-6860cakuniszkiNR Codi Friedman Brar Work Phone: [facility] Work Phone: Start: 10-30-2022 End: 81-09-4632Wmuufvir ReferredMD Codi Brar Work Phone: [facility] Work Phone: Start: 12-14-2021 End: 92-52-7476xqsyuoseboFP DOCTOR MISCFacility:C7Rrvzu: 10-16-2021 End: 82-52-4502oqtigjmgwhDU CODI Elder MAYKELFacility:Z7Urcjr: 05-23-2021 End: 94-64-7955Mgjjvut encounter procedureSherrick campus Phys[facility] COLMB [address]Start: 02-17-2021 End: 81-07-4656wgotgytrpsNOZIKW JODY ROSSFacility:H1 Procedures DateProcedureProcedure DetailPerforming ClinicianStart: 11-97-3330BCNCPGKINOR SKIN LESIONNatalie A Darinel SAND CLEANING MACHINE OPERATOR-STAMPING PRESS OPERATOR Work Phone: Start: 18-57-1360Tfa lower extrem oth/thn jt w/o contr Danyelle Kilpatrick MD Work Phone: Start: 65-62-1828QUE Rapid Strep A TestStart: 83-77-3684BgbcqagadhoMmfelpw Darinel SAND CLEANING MACHINE OPERATOR-STAMPING PRESS OPERATOR Work Phone: Plan of Treatment DateCare ActivityDetailAuthorStart: 11-12-2025 End: 83-39-0133Dpxqoqe encounter /29/2026 9:05 AM EDT Office Visit [facility] [address] [place] [address] Madan Tena, SAND CLEANING MACHINE OPERATOR-STAMPING PRESS OPERATOR [address] [place] [address] BOB [facility] DermatologyStart: 12-20-2024 End: 64-04-9932Tlqcngyo Twejskv9312/20/2024 2:00 PM EST Clinical Support [facility] [address] [place] [address] Perlita Zimmerman, [facility] [address] [place] [address] NOMS [facility] Bryant AudiologyStart: 11-12-2024 End: 23-74-5405Gcurqrk encounter ylcspxyil55/29/2025 8:50 AM EDT Office Visit [facility] [address] [place] [address] Madan Tena, SAND CLEANING MACHINE OPERATOR-STAMPING PRESS OPERATOR [address] [place] [address] [facility] DERMStart: 34-97-8634Nvricsihc vaccinationInfluenza Vaccine (#1)NOMS HealthcareStart: 55-94-7512Afwxvqh referralTrumbull Regional Medical Center Work Phone: Start: 05-18-2024 End: 83-78-7491Sqxthet encounter nmrzdiany07/04/2025 8:45 AM EDT Office Visit Orthopaedics [address] [address] Dmitry Kilpatrick MD [address] [place], [place] [address] f/u Lipoma Left Upper Leg; Review MRI resultsOrthopaedics Comment on above:f/u Lipoma Left Upper Leg; Review MRI resultsStart: 01-19-2024 End: 13-18-2207Okpldyg encounter hahpxymjo94/05/2024 1:05 PM EST Office Visit [facility] [address] [place] [address] Madan Tena, SAND CLEANING MACHINE OPERATOR-STAMPING PRESS OPERATOR [address] [place] [address] ArrivedNOMS [facility] DERMComment on above: ArrivedStart: 12-01-2023 End: 62-52-4402Owwnepj encounter dpbutfvnc86/17/2024 8:15 AM EDT Office Visit [facility] [address] [place] [address] Matthew Winchester, DPM [address] [place] [address] ArrivedNOMS [facility] PODIATRYComment on above:ArrivedStart: 11-10-2023 End: 03-42-9217Mvydzld encounter orrsjnyps49/26/2024 1:00 PM EDT Office Visit [facility] [address] [place] [address] Madan Tena, SAND CLEANING MACHINE OPERATOR-STAMPING PRESS OPERATOR [address] [place] [address] N[facility] DERMStart: 10-27-2023 End: 59-00-1282Dsxyzge encounter veysfhlqx10/12/2024 8:30 AM EDT Office Visit [facility] [address] [place] [address] Madan Tena, SAND CLEANING MACHINE OPERATOR-STAMPING PRESS OPERATOR [address] [place] [address] ArrivedNOBALDWIN PARK [facility] DERMComment on above: ArrivedStart: 44-53-2009Npfuy-19 Vaccine ( season)Covid-19 Vaccine ( season)[facility]: 02-65-8624Pjtgdcdno vaccination [facility]: 06-10-2023 End: 28-66-8502Oskusqj encounter kaylanjjk11/26/2024 3:15 PM EDT Office Visit Orthopaedics [address] [address] Dmitry Kilpatrick MD [address] [place] [address] MRI ResultsOrthopaedicsComment on above:MRI ResultsStart: 65-91-7342Aslxswodkg Health ScreeningBehavioral Health ScreeningOhiohealth Nelsonville Health Center Start: 64-08-9222Glxky-19 Vaccine ()Covid-19 Vaccine ()[facility]: 30-46-3975Hehrpnqvn vaccinationInfluenza Vaccine (#1)[facility]: 38-05-4971Memuvtaxzy AssessmentDepression AssessmentUC West [facility] Hospitaltart: 86-44-3654Ccsqrtkhm for malignant neoplasm of breastUC [facility] Hospitalt[facility]: 62-23-9094Kwbhclvy Vaccine (1 of 2)Shingrix Vaccine (1 of 2)[facility]: 34-16-2983Hdihszvrf (FIT-DNA)Cologuard (FIT-DNA) [facility]: 79-00-2577OdnktcmxrhyMfgyglpfunjNqngjhjvx ClinicStart: 05-72-4862Bgryqhxxvg Cancer ScreeningColorectal Cancer ScreeningOhiohealth Nelsonville Health Center Start: 36-67-4479AG ColonographyCT ColonographyUC [facility] Hospitaltart: 2009 Diabetes ScreeningDiabetes ScreeningUC [facility] Hospitaltart: 24-70-0137Hwasz Occult BloodFecal Occult BloodUC [facility] Hospitaltart: 11-79-0181Kcadh 1996 panel - Serum or PlasmaLipid ScreeningUC [facility] Hospitaltart: 69-70-8777Agytc panel Lipid ScreeningUC [facility] Hospitaltart: 76-09-7253Hymumtplo for malignant neoplasm of colonUC [facility] Hospitaltart: 01-76-5704WkwpuraczsojaMilooqfvwqsldRyimakobj ClinicStart: 74-90-1677SmpcudcztefOhvbqxrmb ScreeningUC [facility] Hospitaltart: 62-25-8097PYG TestingHPV TestingUC [facility] Hospitaltart: 25-02-0377Qdphncdak for malignant neoplasm of cervixUC [facility]: 06-27-3785Yyf TestingPap TestingUC [facility] Hospitaltart: 57-88-2203Igjhulykl for malignant neoplasm of cervixUC [facility]: 77-25-4013Artgjpwqz B Vaccine (1 of 3 - 19+ 3-dose series)Hepatitis B Vaccine (1 of 3 - 19+ 3-dose series)[facility]: 98-64-5293Xrlwd microalbumin profileDTaP,Tdap,Td Vaccine (1 - Tdap)[facility]: 31-46-8404Dijpjgb ScreeningAnxiety ScreeningUC [facility] Hospitalt[facility]: 50-89-5524Hvfswqyjlc ScreeningDepression ScreeningUC [facility]: 20-30-0207Exgdbyqrl C ScreeningHepatitis C ScreeningUC [facility] Hospitaltart: 53-68-8381Inuewohwe C screeningHepatitis C ScreeningUC [facility] Hospitalt[facility]: 58-73-0943ZKY ScreeningHIV ScreeningUC [facility]: 82-32-1056IFM screeningHIV ScreeningUC [facility] Hospitaltart: 76-30-6432Hhhelhykk B Vaccine (1 of 3 - 3-dose series)Hepatitis B Vaccine (1 of 3 - 3-dose series)[facility] Start: 98-02-2556Tscyragyp for malignant neoplasm of colonFormerly [facility] metabolic 2000 panel - Serum or PlasmaDiley Ridge Medical CenterComprehensive metabolic 2000 panel - Serum or [facility] HospitalMR Thigh - left WO contrastMRI UPPER LEG WO IVCON LEFT Radiology Routine Lipoma of left lower extremity 05/01/2024 12:17 PM EDTCUniversity Hospitals Conneaut [facility] Work Phone: End: 61-51-2055GII UPPER LEG WO IVCON LEFTMRI UPPER LEG WO IVCON LEFT Radiology Routine Lipoma of left lower extremity 1 Occurrences lgclyaje59/15/2023 until 4CUniversity Hospitals Conneaut Medical Center Work Phone: comment on above:1 Occurrences starting 12/29/2022 until 4Patient referralTrumbull Regional Medical Center Work Phone: [facility] Payers DatePayer CategoryPayerPolicy ID2023Medicaid [id number] Health Insurance [employer] Member Subscriber Plan / Payer (Effective 2022- Present) Name: Trang Cornejo Relation to Subscriber: Self Name: Trang Cornejo Payer ID: Not on file Group ID: [id number] Type: Not on file Address: [address] [place] [id number] 2023Medicaid [id number] BLUE CARD PPO OOS [id number] 2021-Present [phone] [address] [place] [address] PPO [id number] [id number] 2..[id number] 2.0.1.1927[id number] 2.0.1.480853.3.57[id number] 2.0.1.00377[id number] 2.0.1.499652.3.579.2.645267-17-0925Kxvk-kow [id number] Health InsuranceAetna Insurance [id number] UnknownAnthem [place] Local [id number] UnknownAnthem /[id number] Social History DateTypeDetailFacilityTobacco smoking status NHISUnknown if ever smoked [facility] Physician ServicesStart: 87-08-9698Qwp [facility]: 12-29-2022 End: 55-51-7916Xfb [facility]igned [facility]: 11-24-2022 End: 53-16-7331Blpnqhe smoking status NHISNever smoked tobaccoOhiohealth Nelsonville Health Center Start: 11-24-2022 End: 04-86-5225Zbsigqy use and exposureSmokeless tobacco non-userUC [facility] Hospitaltart: 12-29-2022 End: 30-93-3380Cixeyas of Social functionOhiohealth Nelsonville Health CenterAdult Depression Screening Lxfsphhktw2Elrzysxok ClinicStart: 47-77-5525Fsu Assigned At BirthNot on fileUC [facility] Hospitaltart: 11-10-2023 End: 68-75-6957Askhfnfrm beverage intakeCurrent drinker of alcohol (finding)[facility] HealthcareStart: 81-70-7491Dbtmwum Commentcaffeine 1-2 cups/day; coffeeNOMS HealthcareSexFemale (finding)[facility] Ridge Medical CenterNEGATED: Highlighted rowStart: NINFHistory of tobacco usePassive smokerOhiohealth Nelsonville Health Center Clinical Notes 11-09-2022 to 11-12-2024 Note Date & RzjxXrdpDeyombyp32-52-5638 History of Present illness Narrative* Madan Tena, NAFISA - 11/12/2024 8:50 AM EDT Skin Check Location: Patient requests a full body skin examination Dermatologic history: history of Actinic Keratosis Last visit: 1 year ago Established patient All pertinent medical history, medications, and allergies were reviewed. General Exam: alert, oriented to person, place, and time, normal affect, well appearing Unaccompanied Scalp, Examined , exam limited by hair Right leg Examined Head, Face Examined Left leg Examined Neck Examined Right foot Examined Chest Examined Left foot Examined Back Examined Buttocks Examined Patient kept underwear on Abdomen Examined Digits,nails: Examined Right arm Examined Left arm Examined Lymphatics: Not examined Hands Examined Skin Exam 1. SEBORRHEIC KERATOSIS Generalized Stuck on verrucous, variably pigmented papules and plaques. Patient was counseled regarding these benign growths. Removal is normally not necessary, but they may be removed if they are symptomatic or for cosmetic reasons. 2. LENTIGINES Generalized Scattered borja macules in sun-exposed areas. The patient was informed that lentigines are benign pigmented lesions that occur on sun-exposed andsun-damaged skin. No treatment is necessary. Recommended regular use of broad spectrum sunscreen SPF 30 or higher 3. CAPILLARY ANGIOMA Generalized Scattered kim-red papule(s). The patient was informed that angiomas are benign growths on the the skin. No treatment is necessary. 4. 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 Flaring today Patient counseled on prurigo nodularis. Instructed to refrain from scratching or picking itchy bumps on skin. Educational handout given. 5. MELANOCYTIC NEVUS OF TRUNK Generalized Scattered benign appearing, regular brown to light brown melanocytic papules and macules with similar morphology Counseled regarding these benign growths. Rarely, a nevus can develop into malignant melanoma, so any changing nevi should be promptly re-evaluated. 6. DERMATOFIBROMA Right Ankle - Anterior Firm brown papule that dimples with lateral pressure. Discussed that these are benign scars on the skin. If lesion is changing/symptomatic, return to office to have lesion re-evaluated Next Visit: 1 year documented in this encounterLake Regional Health SystemEufanyimnv87-49-2412 Chief complaint+Reason for visit Narrative* Chief Complaint Admit Date ENT Referral October 12, 2024 10 :21am Reason for Visit Admit Date Bilateral tinnitus October 12, 2024 10 :21am Hyperlipidemia, unspecified October 12, 2024 10:21am [facility] Work Phone: 1(868) 686-508308-29-2025 Evaluation note* Diagnosis Onset Date Resolution Status Admit Date Bilateral tinnitus acuteAugust 2024 10:21amHyperlipidemia, unspecifiedacuteAugust 2024 10:21am [facility] Work Phone: 1(748) 893-759703-18-2025 History of Present illness Narrative* Olya Chapman RT(R) - 05/01/2024 11:40 AM EDT Radiology Service Progress Note PATIENT NAME: Trang Cornejo DATE OF SERVICE: May 01, 2024 TIME: 12:06 PM PATIENT IDENTITY VERIFICATION COMPLETED USING TWO (2) IDENTIFIERS: Name and Date of confirmedby patient verbally and Name and Date of confirmed by identification band. FALL SCREENING: Has the patient had 2 falls in the last year or 1 fall with injury or currently using an Ambulatory Assistive Device (Walker, Cane, Wheelchair, Crutches, etc.)? No PATIENT GENDER DATA: Assigned female at . status: : No status:NO. PATIENT RELEVANT IMPLANT DATA REVIEWED: Yes PATIENT PRESENTS WITH AN IMPLANTABLE OR ATTACHED CD TECHNICIAN: No RADIOLOGY DEPARTMENT: MR; Exam(s) Completed: Lower MSK: Femur, left PERIPHERAL IV DATA: Not applicable SIGNED BY: RT Markell(R) May 01, 2024 12:06 PM documented in this encounterOhiohealth Nelsonville Health Center03-18-2025 NoteHNO ID: [id number] Author: OLYA CHAPMAN RT(R) Service: Radiology Author Type: Technologist Type: Progress Notes Filed: 05/01/2024 12:06 Note Text: Radiology Service Progress Note PATIENT NAME: Trang Cornejo DATE OF SERVICE: May 01, 2024 TIME: 12:06 PM PATIENT IDENTITY VERIFICATION COMPLETED USING TWO (2) IDENTIFIERS: Name and Date of confirmed by patient verbally and Name and Date of confirmed by identification band. FALL SCREENING: Has the patient had 2 falls in the last year or 1 fall with injury or currently using an Ambulatory Assistive Device (Walker, Cane, Wheelchair, Crutches, etc.)? No PATIENT GENDER DATA: Assigned female at . status: : No status: NO. PATIENT RELEVANT IMPLANT DATA REVIEWED: Yes PATIENT PRESENTS WITH AN IMPLANTABLE OR ATTACHED CD TECHNICIAN: No RADIOLOGY DEPARTMENT: MR; Exam(s) Completed: Lower MSK: Femur, left PERIPHERAL IV DATA: Not applicable SIGNED BY: Olya Chapman RT(R) May 01, 2024 12:06 [facility] HospitalZjpljjyp48-24-4635 History of Present illness Narrative* Madan Tena, PIOTR-STAMPING PRESS OPERATOR - 01/19/2024 1:05 PM EST Images from the original note were not included. Follow up Diagnosis: Actinic Keratosis Location: forehead and glabella Last visit: 11/10/2023 Status: not resolved Current treatment: Cryotherapy x 1 on 11/10/2023 Rash Location: shoulders, arms, legs Duration: few months Severity: mild, moderate Quality: itchy Modifying Factors: worst at night Associated symptoms: scabs that bleed if patient scratches Current treatments: capsaicin cream hs. Patient denies animals having hair loss or bugs. Patient thinks rash is not related to bug bites. Established patient All pertinent medical history, medications, and allergies were reviewed. General Exam: alert, oriented to person, place, and time, normal affect, well appearing Unaccompanied A focused exam completed based on patient reported problems, see below: 1. Bug bite without infection, subsequent encounter (4) Head - Anterior (Face), Left Lower Leg - Anterior, Mid Back, Right Shoulder - Anterior Scabs noted on skin of where patient is itching Reassured patient AK's resolved on forehead and glabella. Discussed with patient condition is related to bug bites. No infection noted. Recommended Dove Soap and cereve Moisturizer handout given. Start OTC benadryl at HS as needed for itching, start OTC benadryl cream apply topically four times a day as needed for itchy, and apply ice as needed for itching, make sure there is a barrier between ice and skin, making sure there is no bugs in the house. Follow up if no improvement. diphenhydrAMINE (BENADryl) 2 % cream - Mid Back Apply topically 4 (four) times a day as needed for itching 2. Nonvenomous insect bite of lower extremity, unspecified laterality, subsequent encounter Next Visit: prn for any new/changing lesions documented in this encounterLake Regional Health SystemDifbvajocw06-89-8209 History of Present illness Narrative* Matthew Winchester, ISABELLA - 12/01/2023 8:15 AM EDT Reason for Visit: Established Patient: Recheck Bilateral hallux toenails HPI Established patient presents for follow up examination of the bilateral hallux toenails. Patient states that the RT hallux toenail fell off on 09-30-2023 and the LT hallux toenail fell off on 10-07-2023. Patient has achy sensation to the nailbeds. Patient takes Aleve twice a day for other issues.Patient denies any drainage from the nailbeds. Patient was at a dermatology appointment was told she should have Dr. Winchester look at the nailbeds. Note: Patient had previous blisters to bilateral hallux toenail borders which resolved. RReview of Systems General: Chills denies. Fatigue denies. Fever denies. Night sweats denies. Endocrine: Diabetes denies. Hyperpigmentation denies. Weakness denies. Cardiovascular: Chest pain denies. Shortness of breath denies. Gastrointestinal: Constipation denies. Diarrhea denies. Nausea denies. Vomiting denies. Hematology: Anemia denies. Bleeding problems denies. Easy bruising denies. Musculoskeletal: Bone/joint symptoms denies. Leg cramps denies. Peripheral Vascular: Edema denies. Raynaud's denies. Rest pain denies. Varicose veins denies. Skin: Nail changes denies. Rash denies. Skin lesion(s) denies. Ulceration admits. Neurologic: Dizziness denies. Gait abnormality denies. Headache denies. Tingling/Numbness denies. Examination General Examination: GENERAL EXAMINATION: awake, aware of surroundings, in no acute distress. Vascular: DORSALIS PEDIS PULSE: palpable bilateral. POSTERIOR TIBIAL PULSE: palpable bilateral. TEMPERATURE GRADIENT: warm to cool. EDEMA: none. VARICOSITIES: None. CAPILLARY FILLING TIME(sec): less than 2 seconds bilateral. Ankle / Foot: MUSCLE STRENGTH: 5/5 to the major muscle groups. Neurologic: NEUROLOGIC: normal. Bilateral numbness bilateral hallux lateral border likely due to pressure- reduced. Dermatologic: SKIN FINDINGS: Skin is thin, shiny, atrophic and dry with absent pedal hair to the bilateral lower extremity. HYPERKERATOSIS: Pre-ulcerative callus: None. NAIL PATHOLOGY: Intact toenails to 1-5 bilaterally. Old subungual hematoma bilateral hallux has resolved completely. Toenails have fallen off recently; nail beds are closed without sign of infection or fungus or pain no treatment necessary. Cellulitis previously was noted last office visits completely resolved. Orthopedic: JOINT RANGE OF MOTION: normal. DEFORMITIES: none . ORTHOPEDIC: within normal limits. SHOE GEAR EVALUATION: athletic shoes bilateral foot. Imaging: Deferred. Assessments - Onychomycosis bilateral hallux distal : Resolved as bilateral hallux toenails have fallen off. Nail beds are closed clean noninfected not open nondraining and nontender. - Cellulitis right hallux: Resolved - numbness bilateral lateral hallux: Improved Plan Onychomycosis with recent trauma and right hallux cellulitis - Patient was seen today for follow up office visit. Physical examination was performed. - At last office visit patient had cellulitis right hallux with recent blistering however that areas completely resolved. Nail plate has fallen off bilaterally at this time nail bed is clean, dry, not open, nontender, noninfected and not draining. No treatment is necessary. - Patient was advised toenail will regrow as there was no matrixectomy chemically or surgically however shape of toenail may be deformed in terms of nail plate hand or discoloration. Reappoint p.r.n. documented in this encounterLake Regional Health [id number] History of Present illness Narrative* Madan Tena APRN-STAMPING PRESS OPERATOR - 11/10/2023 1:05 PM EDT Images from the original note were not included. Skin Check Location: Patient requests a full body skin examination Dermatologic history: no history of skin cancer, no family history of melanoma Last visit: 1 year ago(at [facility]) Established patient Follow up Diagnosis: insect bites Location: left abdomen Last visit: 10/27/2023 Symptoms: red Status: some improvement Treatments tried and failed: hydrocortisone 2.5% cream, ketoconazole shampoo 2 % Current treatment: Opzelura 1.5 % BID All pertinent medical history, medications, and allergies were reviewed. General Exam: alert , oriented to person, place, and time , normal affect, well appearing Unaccompanied Areas not examined despite medical recommendation: Scalp, Examined Right leg Examined Head, Face Examined Left leg Examined Neck Examined Right foot Examined Chest Examined Left foot Examined Back Examined Buttocks Examined Abdomen Examined Digits,nails: Examined Right arm Examined Left arm Examined Lymphatics: Not examined Hands Examined 1. Seborrheic keratosis Stuck on verrucous, variably pigmented papules and plaques. Patient was counseled regarding these benign growths. Removal is normally not necessary, but they may be removed if they are symptomatic or for cosmetic reasons. 2. Lentigines Scattered borja macules in sun-exposed areas. The patient was informed that lentigines are benign pigmented lesions that occur on sun-exposed andsun-damaged skin. No treatment is necessary. Recommended regular use of broad spectrum sunscreen SPF 30 or higher 3. Capillary angioma Scattered kim-red papule(s). The patient was informed that angiomas are benign growths on the the skin. No treatment is necessary. 4. Dermatofibroma Right Ankle - Anterior Firm brown papule that dimples with lateral pressure. Discussed that these are benign scars on the skin. If lesion is changing/symptomatic, return to office to have lesion re-evaluated 5. Insect bite of abdomen, initial encounter Left Abdomen Bug bites resolved Resolved today. No further treatment necessary. 6. Lipoma of lower extremity, unspecified laterality Left Thigh - Anterior 7.0 x 5.0 cm soft subcutaneous nodule Educated on lipomas. Informed patient that lipomas can be surgically removed if they become symptomatic. Discussed the only way to know for sure the lesion is a lipoma would be to have it removed andtested. Discussed observation vs. excision. Patient elected for observation today. Return to clinicfor re- evaluation if lesion is enlarging/becoming symptomatic. Patient reports [facility] is following patient on the lipoma and she is scheduled for her next MRI February 2024. 7. Actinic keratosis (2) Glabella, Left Forehead Erythematous scaly papules Patient was counseled regarding these sun-induced growths that can develop into squamous cell carcinoma if left untreated. Discussed treatment with cryotherapy. It was emphasized that any treated lesions that fail to resolve should be re- evaluated. Cryotherapy performed today; see procedure note Diagnosis: Actinic keratosis Indication: Precancerous Location: see skin exam Consent: Verbal consent was obtained and risks were discussed, including, but not limited to risks of scarring, darker or redye hand pigmentary changes, recurrence, incomplete removal and infection. Method: Liquid nitrogen was used to treat the lesion(s) with two 5-10 second freeze-thaw cycles. Number of lesions treated: 2 Post-procedure instructions: Instructions were given orally and in writing. The office will be contacted if the lesion fails to resolve despite treatment, or if a side effect develops such as abnormal crusting, scabbing, redness or tenderness Cryotherapy, skin lesion - Glabella, Left Forehead Next Visit: 1 year skin exam documented in this encounterLake Regional Health [id number] History of Present illness Narrative* NAFISA Ricardo - 10/27/2023 8:30 AM EDT Images from the original note were not included. Rash Location: stomach, neck Duration: 2 weeks Quality: denies itch, denies burning Associated symptoms: red Treatments tried and failed: hydrocortisone 2.5% cream, ketoconazole shampoo 2 % Current treatments: opzelura 1.5 % cream New patient All pertinent medical history, medications, and allergies were reviewed. General Exam: alert , oriented to person, place, and time , normal affect, well appearing Unaccompanied A focused exam completed based on patient reported problems, see below: 1. Insect bite of abdomen, initial encounter Left Abdomen Erythematous papule with surrounding hyperpigmentation Resolving today, Start opzelura 1.5 % cream twice daily. Patient denies tick bites. Instructed patient to call if any worsening. Follow up in two weeks. If still present consider biopsy 2. Notalgia paresthetica Neck - Posterior No visible rash noted today Instructed patient to start Zostrix cream OTC. Literature provided. Next Visit: 2 weeks, follow up/skin check documented in this encounterLake Regional Health [id number] History of Present illness Narrative* Matthew Winchester, ISABELLA - 09/16/2023 1:15 PM EDT Reason for Visit: NEW PATIENT: Bilateral hallux numbness/blistering/toenail discoloration Second Complaint: Cellulitis RT hallux HPI NEW PATIENT presents for examination of the bilateral hallux. Patient states that she stubbed the RT hallux toenail 6 months ago and would trim nail as it re-grew. Patient went on vacation from 09-03-23 through 09-12-23. Patient wore tennis shoes for two days and afterwards she noticed the RT hallux was swollen, red and with a blister to the lateral aspect of the nailbed. Patient knew a trauma nurse who drained the blister and applied a drawing salve to the nail. She told patient that she would probably loose the nail. Patient also had a blister to the distal LT hallux and that resolved. She now notices that both toenails have become discolored. Patient has no pain to the toenails. She has developed numbness to the bilateral lateral hallux over the past couple of days. Second Complaint: Patient presents for examination of cellulitis to the RT hallux. Patient was examined at [facility] where she was prescribed Doxycycline Hyclate 100mg, one tablet twice a day,for 7 days. Review of Systems General: Chills denies. Fatigue denies. Fever denies. Night sweats denies. Endocrine: Diabetes denies. Hyperpigmentation denies. Weakness denies. Cardiovascular: Chest pain denies. Shortness of breath denies. Gastrointestinal: Constipation denies. Diarrhea denies. Nausea denies. Vomiting denies. Hematology: Anemia denies. Bleeding problems denies. Easy bruising denies. Musculoskeletal: Bone/joint symptoms denies. Leg cramps denies. Peripheral Vascular: Edema denies. Raynaud's denies. Rest pain denies. Varicose veins denies. Skin: Nail changes denies. Rash denies. Skin lesion(s) denies. Ulceration admits. Neurologic: Dizziness denies. Gait abnormality denies. Headache denies. Tingling/Numbness denies. Examination General Examination: GENERAL EXAMINATION: awake, aware of surroundings, in no acute distress. Vascular: DORSALIS PEDIS PULSE: palpable bilateral. POSTERIOR TIBIAL PULSE: palpable bilateral. TEMPERATURE GRADIENT: warm to cool. EDEMA: none. VARICOSITIES: None. CAPILLARY FILLING TIME(sec): less than 2 seconds bilateral. Ankle / Foot: MUSCLE STRENGTH: 5/5 to the major muscle groups. Neurologic: NEUROLOGIC: normal. Bilateral numbness bilateral hallux lateral border likely due to pressure- etiology unknown. Dermatologic: SKIN FINDINGS: Skin is thin, shiny, atrophic and dry with absent pedal hair to the bilateral lower extremity. HYPERKERATOSIS: Pre-ulcerative callus: None. NAIL PATHOLOGY: Intact toenails to 1-5 bilaterally. Distal discoloration probable onychomycosis bilateral hallux Cellulitis right hallux appears to be resolving well. Patient has no sign of drainage, purulence, or pain right hallux. Orthopedic: JOINT RANGE OF MOTION: normal. DEFORMITIES: none . ORTHOPEDIC: within normal limits. SHOE GEAR EVALUATION: athletic shoes bilateral foot. Imaging: Deferred. Assessments - Onychomycosis bilateral hallux distal - Cellulitis right hallux: Resolving - numbness bilateral lateral hallux Plan Onychomycosis with recent trauma and right hallux cellulitis - Patient was seen today for original office visit. Physical examination was performed. -Patient had cellulitis right hallux with recent blistering. She was shows nice improvement appearsto be resolving well. -Patient was advised to maintain oral antibiotics until completed. -Patient was advised about what appears to be onychomycosis bilateral hallux. We recommended topical medication as well as b.I.d. washing with warm soapy water, dry completely, apply antifungal powder between toes. -Patient was cut toenails and thin to prevent accumulation of onychomycosis in deformity. -Patient advised to wear shoes that have a deep toe box to prevent rubbing and irritation. Patient was advised to continue to avoid any micro or macro trauma and reappoint p.r.n. Numbness bilateral lateral hallux Patient was seen today for original office visit. Physical examination was updated and performed. Patient has intact neurological status however has numbness bilateral lateral hallux likely due to shoe pressure between toes 1 and 2. New onset with with unknown injury or trauma 3. Patient was advised to wear extra-depth type wide shoe she should have no pressure between toes 1 and 2 toe spacers could be considered as well as [facility]. Recommend patient wear wider shoes hold off of the prescription at this time reappoint in 2 weeks if symptoms do not improve or actually worsened then reappoint sooner. documented in this encounterLake Regional Health [id number] NoteHNO ID: [id number] Author: YASMIN MATUTE RN Service: ? Author Type: Registered Nurse Type: Progress Notes Filed: 06/10/2023 15:25 Note Text: I served as a scribe during this office visit encounter. Yasmin Matute RNWvumedicine [facility]04-26-2024 NoteHNO ID: [id number] Author: DMITRY KILPATRICK MD Service: ? Author Type: Physician Type: Progress Notes Filed: 06/10/2023 15:25 Note Text: Orthopaedic Oncology Follow-Up Clinic Note Last Clinic Visit: 12/29/2022 Diagnosis: Left Intramuscular Lipoma S: This visit represents a follow up clinical visit with Trang barbour. She is here today for follow up and to discuss MRI results. She reports no real changes on her end with regard to the mass. Still has a dull pain in her anterior thigh, but is also still plagued by posterior thigh/buttock - hamstring - pain. She reports her left leg will tire quicker with prolonged walking. If not necessary to remove, she would prefer not to have surgery. She is inquiring if she could continue to follow with Dr. Knox locally regarding her hamstring issues. Exam: LLE She has a doughy mass, over the mid anterior thigh compartment, deep to fascia, mobile, disappears with quadricep contraction. Normal femoral nerve strength. Benign hip and knee exam with normal and symmetric strength. No swelling. Very supple IT band, no IT band symptoms. No trochanteric bursitis. Mild tenderness to palpation over the ischial tuberosity with hip flexion. No resisted hamstring flexion pain is reproducible. Tumor/Lesion location:Mass is readily palpable - left anterior thigh, Approximate size: 10cm x 5cm; Location from pertinent anatomic landmarks - mid shaft femur; mobile, nontender to palpation, and deep to fascia Imaging: All new imaging available today that has been personally viewed and reports reviewed are as follows: 06/06/23 MRI left thigh --> Reviewed. There are no changes in the 7.5 cm intramuscular rectus femoris fatty tumor, left thigh. No concern for dedifferentiation. No surrounding muscle edema. Dimensions are similar in all planes compared to November 2022. November 2022 MRI imaging available - There is a 4.7cm x 1.8cm x 7.4 cm located in the rectus femoris muscle belly, intramuscular, deep to the fascia. No surrounding muscle edema. No concern for dedifferentiation. This suppresses with fat signal, and is homogeneous in quality. Of note, there is also hamstring tendinosis symptoms, without an overt tear, at the ischial tuberosity origin. No obvious abductor tendon tendinosis. A/P: - Plan to obtain another non-C femur MRI in 12 months. Order placed today. If it continues to show no major changes or growth, I would likely plan to follow-up as needed and will plan to educate her on red flag symptoms that would suggest reestablishing with us. She is not interested in having this surgically removed, as it does not hurt, it is not a cosmetic concern, it is showing no interval growth, and there are no concerns for malignancy. - Re: Hamstring concerns -- We could consider a referral to our sports medicine nonoperative colleagues, I would likely refer to Dr. Fox at [place]. An ultrasound-guided injection into the hamstring origin at the ischial tuberosity could be considered. She really is not limited by the pain, and would prefer to hold off at the present. I spent a total of 30 minutes on the date of the service which included [id number] patient care, completing clinical documentation, obtaining and/or reviewing separately obtained history, performing a medically appropriate examination, counseling and educating the patient/family/caregiver, ordering medications, tests, or procedures, independently interpreting results (not separately reported), and communicating results to the patient/family/caregiver. The counseled portion is detailed in the plan, as above, that I have personally verified and edited as appropriate. Any information added by medical student, resident, nurse, STAMPING PRESS OPERATOR/SOPHIA that I have placed my signature directly below I have verified and either instructed them to document in a scribe function or document appropriately in the chart during the patient visit. Dmitry Kilpatrick MD pipe tester, CCLCM at [facility] Musculoskeletal Oncologist and Total Hip/Knee Surgeon June 10, 2023 3:24 [facility]04-22-2024 Miscellaneous Notes* [facility] - Brian Son MRI Tech - 06/06/2023 9:40 AM EDT Radiology Service Progress Note PATIENT NAME: Trang Cornejo DATE OF SERVICE: June 06, 2023 TIME: 10:07 AM PATIENT IDENTITY VERIFICATION COMPLETED USING TWO (2) IDENTIFIERS: Name and Date of confirmedby patient verbally and Name and Date of confirmed by identification band. FALL SCREENING: Has the patient had 2 falls in the last year or 1 fall with injury or currently using an Ambulatory Assistive Device (Walker, Cane, Wheelchair, Crutches, etc.)? No PATIENT GENDER DATA: Female. status: : No status: NO. PATIENT RELEVANT IMPLANT DATA REVIEWED: Yes PATIENT PRESENTS WITH AN IMPLANTABLE OR ATTACHED CD TECHNICIAN: No RADIOLOGY DEPARTMENT: MR; Exam(s) Completed: Lower MSK: Femur, left PERIPHERAL IV DATA: Not applicable SIGNED BY: JUAN CARLOS Aponte June 06, 2023 10:07 AM documented in this encounterOhiohealth Nelsonville [facility]04-22-2024 Progress note* [facility] - Brian Son MRI Tech - 06/06/2023 9:40 AM EDT Radiology Service Progress Note PATIENT NAME: Trang Cornejo DATE OF SERVICE: June 06, 2023 TIME: 10:07 AM PATIENT IDENTITY VERIFICATION COMPLETED USING TWO (2) IDENTIFIERS: Name and Date of confirmedby patient verbally and Name and Date of confirmed by identification band. FALL SCREENING: Has the patient had 2 falls in the last year or 1 fall with injury or currently using an Ambulatory Assistive Device (Walker, Cane, Wheelchair, Crutches, etc.)? No PATIENT GENDER DATA: Female. status: : No status: NO. PATIENT RELEVANT IMPLANT DATA REVIEWED: Yes PATIENT PRESENTS WITH AN IMPLANTABLE OR ATTACHED CD TECHNICIAN: No RADIOLOGY DEPARTMENT: MR; Exam(s) Completed: Lower MSK: Femur, left PERIPHERAL IV DATA: Not applicable SIGNED BY: Brian Son mirror polisher June 06, 2023 10:07 AM [facility]12-08-2023 Evaluation note* Encounter Date Diagnosis Assessment Notes Treatment Notes Treatment Clinical Notes Jan, Acute bacterial conjunctivitis o f right eye (ICD-10 - H10.31) [place] eye is contagious. Wash hands frequently and try not to rub eyes. Use warm wash cloth to keep them clean or to remove discharge from eyes. Use drops until eyes are clear then 3 more days [employer] Other 11-15-2023 NoteHNO ID: [id number] Author: Dmitry Kilpatrick MD Service: ? Author Type: Physician Type: Progress Notes Filed: 12/29/2022 10:43 AM Note Text: Orthopaedic Oncology New Patient Note Date: December 29, 2022 Attending Provider: Dr. Dmitry Kilpatrick Referring Physician(s): Dr. Raj Knox Chief Complaint: Left thigh intramuscular mass HPI: Trang Cornejo is a 57 year old female who presents today with a reported left thigh intramuscular mass, lipoma. I will highlight that the patient?s past medical history is largely unremarkable. The reported current symptoms first began approximately 4 years(s) ago. She first thought she had pulled a muscle and thought the bulge was a muscle herniation and didn't think anything of it. Medical attention was first sought with her PCP who referred to ortho, after she most recently felt it had been growing all this time. She was seen at [facility] ortho (Dr. Raj Knox). She states she has twinges/aching in the posterior thigh. She has trouble getting her leg to move especially motivating forward. She has had no treatment or evaluation. She has no pain or tenderness with direct palpation of the mass. MRI was performed, showing a 2 x 5 x 7cm mass located in the rectus femoris. Since first being noted, the mass has increased in size. When it was first discovered, the mass was approximately the size of a quarter/half dollar, and is now approximately 2-3 times the size. She reports she also feels a second mass, more proximal, and would like this evaluated today, as well. The patient denies any pain symptoms directly with the mass. She reports she has an aching pain in her posterior thigh. Sometimes sitting is worse and then more difficult to propel forward. Miscellaneous concurrent symptoms: The patient denies: nausea, vomiting, decreased appetite, fever, chills, night sweats, and unexplained weight loss Other Pertinent History: as above Assist Device: No Previous Personal Malignancy/MSK disorder? NO Previous surgery for this problem? NO Prior radiation therapy for any reason? NO Body Location of the Radiation Treatment (if applicable): N/A Prior chemotherapy for any reason? NO Working Status: Retired - manager discoverychemistry account manager Situation: Preoperative Ambulatory Status: Independent Community Distances Number of Entry Steps: 2 Bedroom Location: First floor Bathroom Location: First floor Caregiver Assistance: Consistent/Live-In (5-7 days/wk) Home Location: Up to 150 miles Pertinent Past Medical History: PAST MEDICAL HISTORY Diagnosis Date Hypertension Pertinent Past Surgical History: PAST SURGICAL HISTORY Procedure Laterality Date SECTION HX PAST SURGICAL HISTORY OF trigger finger release - thumb x2 PAST SURGICAL HISTORY OF carpal tunnel release Medications: Current Outpatient Medications Medication Sig Dispense Refill vitamin D3-vitamin K2 (DOSOKAP) 137.5-200 mcg tab escitalopram oxalate (LEXAPRO) 10 mg tablet Take 1 tablet by mouth every afternoon. estradiol (ESTRACE) 0.01 % (0.1 mg/gram) vaginal cream APPLY A PEA SIZED DOLLOP ON TIP OF FINGER TO THE OUTSIDE OF VAGINA AND SWIPE INTO VAGINA ONCE A DAY losartan (COZAAR) 50 mg tablet Take 1 tablet by mouth every afternoon. rosuvastatin (CRESTOR) 20 mg tablet Take 1 tablet by mouth every afternoon. zolpidem (AMBIEN) 5 mg tablet TAKE 1 TABLET BY MOUTH EVERYDAY AT BEDTIME NEEDED FOR SLEEP metoprolol succinate ER (TOPROL XL) 25 mg 24 hr tablet Take 25 mg by mouth. No current facility-administered medications for this visit. Allergies: ALLERGIES Allergen Reactions Penicillins Hives, Itching, Rash Other Reaction(s): Fever Seasonal Allergies Other: See Comments Social History: Social History Tobacco Use Smoking status: Never Passive exposure: Never Smokeless tobacco: Never Home Situation: lives at home with SO. Single story dwelling Occupation: retired Hobbies: gardening Family History: FAMILY HISTORY Problem Relation Age of Onset Colon Cancer Paternal Grandmother Health Maintenance: Breast Exam: N/A Cardiac Testing: N/A Review of Systems: A complete 12-point review of systems was undertaken on our new patient intake form. It was unremarkable, except for the highlighted pertinent positives: General: High Blood Pressure Respiratory: Denies coughing up blood, shortness of breath, chest pain with deep breath, cough producing mucus and home oxygen. Genitourinary: Denies pain with urination, unusual fluid leaking from bladder, flank pain, increased frequency of urination, irregular menses, pelvic pain and blood in urine Cardiovascular: Denies chest pain at rest, chest pain with exertion, rapid heart beat, palpatations, slow heart beat, difficulty breathing while sleeping, history of stent placement, pacemaker or defibrillator in place and leg swelling. Metabolic: Denies increased thirst level, history of thyroid problems an (more content not included)...[facility]11-15-2023 History of Present illness Narrative* Dmitry Kilpatrick MD - 12/29/2022 9:41 AM EST Images from the original note were not included. Orthopaedic Oncology New Patient Note Date: December 29, 2022 Attending Provider: Dr. Dmitry Kilpatrick Referring Physician(s): Dr. Raj Knox Chief Complaint: Left thigh intramuscular mass HPI: Trang Cornejo is a 57 year old female who presents today with a reported left thigh intramuscular mass, lipoma. I will highlight that the patient s past medical history is largely unremarkable. The reported current symptoms first began approximately 4 years(s) ago. She first thought she had pulled a muscle and thought the bulge was a muscle herniation and didn't think anything of it. Medical attention was first sought with her PCP who referred to ortho, after she most recently felt it hadbeen growing all this time. She was seen at [facility] ortho (Dr. Raj Knox). She states she has twinges/aching in the posterior thigh. She has trouble getting her leg to move especially motivating forward. She has had no treatment or evaluation. She has no pain or tenderness with direct palpation of the mass. MRI was performed, showing a 2 x 5 x 7cm mass located in the rectus femoris. Since first being noted, the mass has increased in size. When it was first discovered, the mass wasapproximately the size of a quarter/half dollar, and is now approximately 2-3 times the size. She reports she also feels a second mass, more proximal, and would like this evaluated today, as well. The patient denies any pain symptoms directly with the mass. She reports she has an aching pain in her posterior thigh. Sometimes sitting is worse and then more difficult to propel forward. Miscellaneous concurrent symptoms: The patient denies: nausea, vomiting, decreased appetite, fever, chills, night sweats, and unexplained weight loss Other Pertinent History: as above Assist Device: No Previous Personal Malignancy/MSK disorder? NO Previous surgery for this problem? NO Prior radiation therapy for any reason? NO Body Location of the Radiation Treatment (if applicable): N/A Prior chemotherapy for any reason? NO Working Status: Retired - manager discoverychemistry account manager Situation: Preoperative Ambulatory Status: Independent Community Distances Number of Entry Steps: 2 Bedroom Location: First floor Bathroom Location: First floor Caregiver Assistance: Consistent/Live-In (5-7 days/wk) Home Location: [place] 150 [place] Pertinent Past Medical History: PAST MEDICAL HISTORY Diagnosis Date Hypertension Pertinent Past Surgical History: PAST SURGICAL HISTORY Procedure Laterality Date SECTION HX PAST SURGICAL HISTORY OF trigger finger release - thumb x2 PAST SURGICAL HISTORY OF carpal tunnel release Medications: Current Outpatient Medications Medication Sig Dispense Refill vitamin D3-vitamin K2 (DOSOKAP) 137.5-200 mcg tab escitalopram oxalate (LEXAPRO) 10 mg tablet Take 1 tablet by mouth every afternoon. estradiol (ESTRACE) 0.01 % (0.1 mg/gram) vaginal cream APPLY A PEA SIZED DOLLOP ON TIP OF FINGER TOTHE OUTSIDE OF VAGINA AND SWIPE INTO VAGINA ONCE A DAY losartan (COZAAR) 50 mg tablet Take 1 tablet by mouth every afternoon. rosuvastatin (CRESTOR) 20 mg tablet Take 1 tablet by mouth every afternoon. zolpidem (AMBIEN) 5 mg tablet TAKE 1 TABLET BY MOUTH EVERYDAY AT BEDTIME NEEDED FOR SLEEP metoprolol succinate ER (TOPROL XL) 25 mg 24 hr tablet Take 25 mg by mouth. No current facility-administered medications for this visit. Allergies: ALLERGIES Allergen Reactions Penicillins Hives, Itching, Rash Other Reaction(s): Fever Seasonal Allergies Other: See Comments Social History: Social History Tobacco Use Smoking status: Never Passive exposure: Never Smokeless tobacco: Never Home Situation: lives at home with SO. Single story dwelling Occupation: retired Hobbies: gardening Family History: FAMILY HISTORY Problem Relation Age of Onset Colon Cancer Paternal Grandmother Health Maintenance: Breast Exam: N/A Cardiac Testing: N/A Review of Systems: A complete 12-point review of systems was undertaken on our new patient intake form. It was unremarkable, except for the highlighted pertinent positives: General: High Blood Pressure Respiratory: Denies coughing up blood, shortness of breath, chest pain with deep breath, cough producing mucus and home oxygen. Genitourinary: Denies pain with urination, unusual fluid leaking from bladder, flank pain, increased frequency of urination, irregular menses, pelvic pain and blood in urine Cardiovascular: Denies chest pain at rest, chest pain with exertion, rapid heart beat, palpatations, slow heart beat, difficulty breathing while sleeping, history of stent placement, pacemaker or defibrillator in place and leg swelling. Metabolic: Denies increased thirst level, history of thyroid problems and history of diabetes. Skin: Denies rash, bruising, abrasions, cuts and prior abcesses Gastrointestinal: Denies vomiting, reflux disease, nausea, history of stomach ulcers, diarrhea, constipation, blood in stool and black stool. Muscular: Denies neck/back pain, joint swelling, joint pain, redness over joint and history of autoimmune disease Head: Denies history of head trauma, dizziness, frequent headaches, Lopez's Palsy, blindness and recurrent sinus infections Hematology: Denies use of blood thinners, multiple new areas of skin discoloration, increased size of lymph nodes, history of blood clots(including lungs) and bleeding disorder Mental Health: Denies depression, frequent anxiety, bipolar disorder, ADD/ADHD, suicidal thoughts, loss of appetite and difficulty sleeping Neurology: Denies history of stroke, vision changes, spinal cord injuries and neck/back surgery. Physical Examination: Ht 167.6 cm (5' 6 ) Wt 67.1 kg (148 lb) BMI 23.89 kg/m Gen: In no apparent distress (baseline anxious), In mild distress, conversational and appropriate, nontoxic in appearance Psych: Normal affect, Well-groomed, focused in conversation HEENT: Sclera anicteric, EOMI, No Ulcers or lesions. Lips, mucosa, and tongue normal. Teeth and gums normal. Oropharynx normal. Pulm: Trachea Midline, Normal Excursion, No use of inspiratory accessory muscles, No expiratory wheezing, Breath sounds equal CV: regular rate and rhythm, No murmur asculated., and Equal peripheral pulses Heme/Lymph Node Survey: Cervical/Supraclavicular/Axillary/Inguinal LN chains without obvious abnormality ABD: Soft; Nontender/Nondistended; No organomegaly Ext: LLE She has a doughy mass, over the mid anterior thigh compartment, deep to fascia, mobile, disappears with quadricep contraction. Normal femoral nerve strength. Benign hip and knee exam with normal and symmetric strength. No swelling. Very supple IT band, no IT band symptoms. No trochanteric bursitis.Mild tenderness to palpation over the ischial tuberosity with hip flexion. No resisted hamstring flexion pain is reproducible. Skin: No ecchymosis, petechia, or skin lesions noted on exam Neuro: No focal deficits, strength grossly intact SILT grossly BUE/BLE Tumor/Lesion location:Mass is readily palpable - left anterior thigh, Approximate size: 10cm x 5cm;Location from pertinent anatomic landmarks - mid shaft femur; mobile, nontender to palpation, and deep to fascia Pertinent Imaging Studies: All imaging studies listed below have been personally viewed and interpreted by the physician team and the imaging reports correlated. Plain film imaging available - MRI imaging available - There is a 4.7cm x 1.8cm x 7.4 cm located in the rectus femoris muscle belly, intramuscular, deep to the fascia. No surrounding muscle edema. No concern for dedifferentiation.This suppresses with fat signal, and is homogeneous in quality. Of note, there is also hamstring tendinosis symptoms, without an overt tear, at the ischial tuberosity origin. No obvious abductor tendon tendinosis. 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 They are nota direct cause-affect. Discussion & Plan: Summary: Plan for surveillance -- I do not believe that her posterior thigh pain is directly related to the known fatty tumor. I also do not believe there are any concerns for malignancy with this fatty tumor. Interventions Offered: - We have talked about marginal excision of this versus observation. I do not recommend a biopsy, as the 2 differential diagnoses are either a benign lipoma or atypical lipoma. Neither of these are amalignancy. Both are removed in a marginal manner. The reasons that we would remove a tumor are secondary to direct cause of symptoms, cosmesis, proving growth or concern for malignancy. She has no objective evidence as to growth velocity. Therefore, it would be reasonable to also suggest that an MRI in 6 months could be considered. - I believe that her posterior thigh pain is likely related to some hamstring muscle related issues. We have talked about eccentric strengthening exercises as something that she can do at home. She has declined a formal physical therapy prescription, but would rather do these on her own. She can use the Internet to look these up. Studies Needed: - MRI left upper thigh, without contrast. We will plan on having her do this locally, then schedulean appointment with me shortly thereafter. Alternatively, she could have this at the [facility] and then schedule an appointment with me thereafter. - Orders placed today Follow-up or Surgery Instructions: - Plan to follow-up in May 2023. She changes insurance starting in June 2023. If there were no concerns of growth, and she was okay with continuing observance, I would plan on repeating an MRI 12 months thereafter, and likely 24 months thereafter. - If growth is proven, we can then discuss a marginal excision. I would plan on this being an outpatient surgery, likely needing to take a small amount of rectus for Dennis muscle belly, but largely preserving. - We could consider a referral to our sports medicine nonoperative colleagues, I would likely referto Dr. Fox at [place]. An ultrasound-guided injection into the hamstring origin at the ischial tuberosity could be considered. Surgery Plan: None Orders for patient during visit: Office Visit on 12/29/22 MRI UPPER LEG WO IVCON LEFT Attestation: I spent a total of 30 minutes on the date of the service which included [id number] patient care, completing clinical documentation, obtaining and/or reviewing separately obtained history, performing a medically appropriate examination, counseling and educating the patient/family/caregiver, ordering medications, tests, or procedures, independently interpreting results (not separately reported), and communicating results to the patient/family/caregiver. The counseled portion is detailed in the plan, as above, that I have personally verified and edited as appropriate. Any information added by medical student, resident, nurse, STAMPING PRESS OPERATOR/PATorsten that I have placed my signature directly below I have verified and either instructed them to document in a scribe function or document appropriately in the chart during the patient visit. This is my 1st established care visit with Tr[facility]. We have prescribed MRI surveillance interventions Dmitry Kilpatrick MD pipe tester, CCLCM [facility], Division of Musculoskeletal Oncology Co-Director of [facility], [facility] Pager: [phone] December 29, 2022 9:42 AM documented in this encounterOhiohealth [facility]09-26-2023 Evaluation note* Encounter Date Diagnosis Assessment Notes Treatment Notes Treatment Clinical Notes Oct, Well adult exam (ICD-10 - Z00.00 ) We have discussed the necessity of following up with PCP regularly as well as specialists, as needed. Discussed F/U with dentistry and optometry at least yearly. Discussed all preventative measures/ cancer screenings as applicable to this patient. Emphasized the importance of a reduced fat, low carb diet to promote heart health and controlled blood sugars. Reviewed social history and ensured patient is safe within the home today. Pt denies any abuse of alcohol, nicotine, caffeine or recreational drugs. I have ensured patient is of stable mental and physical health today. We have discussed appropriate F/U schedule as well as blood work and vaccinations that apply. All questions answered and p atient is sent home pleased, without concerns. Oct,yslipidemia (ICD-10 - E78.5)Patient to continue to watch diet and increase exercise routine. Remain active as tolerated and we will continue to monitor with routine blood work. Patient is to continue with above medication as directed. Start med Oct,Mass of soft tissue (ICD-10 - M79.89)Chronic problem increasing in size. Pt requests Dr. Knox. Oct,rimary insomnia (ICD-10 - F51.01)Refilling med. chronic problem. Patient is advised to have a set bedtime routine. Do a quiet non stressful activity before bed. Patient to continue with the above medication and we will continue to monitor. Oct,epression with anxiety (ICD-10 - F41.8)Start Lexapro - gave # for counseling. [place] [employer] Other Chief complaint+Reason for visit Narrative* Chief Complaint Admit Date ENT Referral October 12, 2024 10 :21am Reason for Visit Admit Date Bilateral tinnitus October 12, 2024 10 :21am Hyperlipidemia, unspecified October 12, 2024 10:21am Tinnitus October 12, 2024 10 :21am [facility] Work Phone: Evaluation noteNo assessment information available [facility]* Diagnosis Lipoma of left lower extremity- Primary documented in this encounter [facility]Eval[facility] noteNo InformationNortChester [facility] [employer] Other Evaluation note* Diagnosis Lipoma of left lower extremity documented in this encounter [facility]* Diagnosis Onset Date Resolution Status Hyperlipidemia, unspecified acute [facility] Work Phone: Evaluation note* Diagnosis Bug bite without infection, subsequent encounter- Primary Nonvenomous insect bite of lower extremity, unspecified laterality, subsequent encounter documented in this encounter [facility]* Diagnosis Insect bite of abdomen, initial encounter- Primary Notalgia paresthetica Disturbance of skin sensation documented in this encounter [facility]* Diagnosis Lipoma of lower extremity, unspecified laterality- Primary Seborrheic keratosis Lentigines Capillary angioma Nevus, non-neoplastic Dermatofibroma Benign neoplasm of skin, site unspecified Insect bite of abdomen, initial encounter Actinic keratosis documented in this encounter [facility]* Diagnosis Lipoma of left lower extremity [facility] Diagnosis Cellulitis of great toe, right- Primary Onychomycosis Dermatophytosis of nail Numbness of toes Disturbance of skin sensation documented in this encounter [facility]* Diagnosis Onychomycosis- Primary Dermatophytosis of nail Cellulitis of great toe, right documented in this encounter [facility]* Diagnosis Onset Date Resolution Status Admit Date Bilateral tinnitus acuteAugust 2024 10:21amHyperlipidemia, unspecifiedacuteAugust 2024 10:21amTinnitusnoneactiveAugust 2024 10:21am [facility] Work Phone: Evaluation note* Diagnosis Seborrheic keratosis- Primary Lentigines Capillary angioma Nevus, non-neoplastic Prurigo nodularis Lichenification and lichen simplex chronicus Melanocytic nevus of trunk Benign neoplasm of skin of trunk, except scrotum Dermatofibroma Benign neoplasm of skin, site unspecified documented in this encounter [facility] HealthcareHistory general Narrative - Reported* Type Description Date Medical History anxiety Surgical Historycarpal tunnel releaseSurgical Historytrigger finger release Surgical Historydeviated septum repairSurgical Historynasal polypectomy [employer] [facility] Other Hospital Discharge instructionsAmbulatory Orders* Referral to ENT Location: None Selected [facility] Work Phone: Reason for visit Narrative* MRI/CT (Routine) - Closed SpecialtyDiagnoses / ProceduresReferred By ContactReferred To ContactMR IMAGING Diagnoses Lipoma of left lower extremity Procedures MRI UPPER LEG WO IVCON LEFT MRI LOWER EXTREM OTH/THN JT W/O CONTR Dmitry Almendarez MD [address] [place] [address] Phone: tel: fax: [place] [address] Referral IDStatusReasonStart DateExpiration DateVisits RequestedVisits [id number] Auto-Generated Referral [facility] Chief Complaint and Reason for Visit Chief Complaint Sore Throat Chief Complaint CBC TSH VIT D Chief Complaint CBC TSH VIT D Screening Chief Complaint Amb Documentation medication discussionReason for VisitHyperlipidemia, unspecified Summary Purpose Family History No Family History Records Found Relationship Condition Age at Onset Recorded Date/T alexia brother Unknown fatherDeceasedUnknownNot SpecifiedDiabetes mellitusUnknown Relationship Condition Age at Onset Recorded Date/T alexia brother Unknown fatherDeceasedUnknownmotherDiabetes mellitusUnknown Advance Directives No Advanced Directives Records Found Advance Directive Response Recorded Date/ Time Advance Directives No January 9:10am Advance Directive Response Recorded Date/ Time Advance Directives No October 05, 2024 2:37pm Reason for Referral Reason Dr. Lisette doe soft tissue mass on L quad area with associated symptoms Diagnosis 1 Mass of soft tissue (M79.89) Referral Organization [facility] stacy Referring Provider First Name Codi Referring Provider Last Name Maykel Referring Provider Specialty Family [facility] cine Referred Organization [facility] Referred Provider Raj Knox Referred Address ,[place], [place],[address] Referred Provider Specialty Orthopaedic Surgery Referral Priority Routine General Notes Yoly Boyce 11:29:51 AM >received today, attachments made, waiting for notes to be locked to send Yoly Boyce 11/12/2022 10:58:42 AM >notes still not lockedSpecialty Diagnoses / ProceduresReferred By ContactReferred To ContactMR IMAGING Diagnoses Lipoma of left lower extremity Procedures MRI UPPER LEG WO IVCON LEFT MRI LOWER EXTREM OTH/THN JT W/O CONTR Dmitry Almendarez MD [address] [id number] [facility] [place] [address] Referral IDStatusReasonStart DateExpiration DateVisits RequestedVisits [id number] Review Auto-Generated Referral /[id number] IDStatusReasonStart DateExpiration DateVisits RequestedVisits [id number] Auto-Generated Referral / Additional Source Comments Goals (unrecognized section and content) Goals may be documented in a n alternate sectionGoals may be documented in an alternate sectionNo InformationGoals may be documented in an alternate sectionNo InformationNo InformationNo InformationNo InformationNo InformationGoals may be documented in an alternate sectionGoals may be documented in an alternate sectionGoals may be documented in an alternate sectionGoals may be documented in an alternate section INFORMATION SOURCE (unrecogn ized section and content) DATE CREATED AUTHOR 12/17/2021 [facility] DATE CREATED AUTHOR AUTHOR'S ORGANIZ ATION 12/25/2022 [facility] DATE CREATED AUTHOR AUTHOR'S ORGANIZ ATION 06/13/2023 [facility] DATE CREATED AUTHOR AUTHOR'S ORGANIZ ATION 05/15/2024 [facility] DATE CREATED AUTHOR AUTHOR'S ORGANIZ ATION 11/09/2024 [facility] DATE CREATED AUTHOR AUTHOR'S ORGANIZ ATION 11/17/2024 [facility] EPIC Care Teams (unrecognized sec tion and content) Team Status: Active Member Role Status Dates Codi Brar MD Primary Care Provider Active Team Status: Inactive Member Role Status Dates Codi Brar MD Primary Care Provide r, Attending Provider Active Start: October 28, 2023 End: October 28, 2023 Team Status: Active Member Role Status Dates Codi Brar MD Primary Care Provider Active Start: April 28, 2023 Lyly Love ProviderActiveStart: April 28, 2023 Team Status: Inactive Member Role Status Dates Codi Brar MD Primary Care Provide r, Attending Provider Active Start: July 05, 2023 End: July 05, 2023 Team Status: Inactive Member Role Status Dates Codi Brar MD Primary Care Provider Active Outreach CommunityAttending ProviderActiveTeam MemberRelationshipSpecialtyStart DateEnd Date Raj Knox [facility] [place] [address] DiewbobxoGylptjsmrff94/6/23Team MemberRelationshipSpecialtyStart DateEnd Date Codi Brar MD [address] [place] [phone] PCP - GeneralFamily Nczmlvaa38/5/23Team MemberRelationshipSpecialtyStart DateEnd Date Codi Brar MD [address] [place] [address] PCP - GeneralFamily Tignehrj22/5/23Team MemberRelationshipSpecialtyStart DateEnd Date Codi Brar MD [address] [place] [facility] [address] PCP - GeneralFamily Pyhxbgin86/5/23Team MemberRelationshipSpecialtyStart DateEnd Date Codi Brar MD [address] [place] [facility] [address] PCP - GeneralFamily Ctpmuzhx56/5/23Team MemberRelationshipSpecialtyStart DateEnd Date Codi Brar MD [address] [place] [facility] [address] PCP - GeneralFamily Nneuaxqj31/5/23Team MemberRelationshipSpecialtyStart DateEnd Date Codi Brar MD [address] [place] [address] PCP - GeneralFamily Medicine04/10/24 Raj Knox [address] [place], [place] [address]AL[address] [id number] LpsbojmsvAdahlibteun94/6/23Team MemberRelationshipSpecialtyStart DateEnd Date Codi Brar MD [address] [place] [facility] [place] [address] PCP - GeneralFamily Gfoeedeq59/5/23Team MemberRelationshipSpecialtyStart DateEnd Date Codi Brar MD [address] [facility] [place] [address] PCP - [facility]11/18/22 Team Status: Inactive Member Role Status Dates Codi Brar MD Primary Care Provider Active Start: October 12, 2024 End: October 12, 2024Reubne Kendall ProviderActiveStart: October 12, 2024 End: October 12, 2024 Team Status: Inactive Member Role Status Dates Codi Brar MD Primary Care Provider Active Start: November 05, 2024 End: November 05, 2024Reuben Kendall ProviderActiveStart: November 05, 2024 End: November 05, 2024Team MemberRelationshipSpecialtyStart DateEnd Date Codi Brar MD [address] [place] [phone] PCP - [facility]11/18/22 Madan Tena APRN-STAMPING PRESS OPERATOR [address] [facility] [address] [place] [address] [facility]05/15/2510Team MemberRelationshipSpecialtyStart DateEnd Date Codi Brar MD [address] [place] [phone] PCP - [facility]11/18/22 Madan Tena, SAND CLEANING MACHINE OPERATOR-STAMPING PRESS OPERATOR [address] [facility] [address] [place] [address] PCP - [facility]05/15/2510 REASON FOR VISIT (unrecogniz ed section and content) ReasonCommentsNewSpecialtyDiagnoses / ProceduresReferred By ContactReferred To ContactMR IMAGING Diagnoses Lipoma of left lower extremity Procedures MRI UPPER LEG WO IVCON LEFT MRI LOWER EXTREM OTH/THN JT W/O CONTR MATRDmitry Silverio MD [address] [place] [address] [place] [address] Referral IDStatusReasonStart DateExpiration DateVisits RequestedVisits [id number] Auto-Generated Referral [id number] KeratosisRashReasonCommentsRashReason CommentsFollow-upSkin CheckReasonCommentsSkin Check Source Comments (unrecognize d section and content) In the event this informatio n is protected by the Federal Confidentiality of Alcohol and Drug Abuse Patient Records regulations: The Federal rules restrict any use of the information to criminally investigate or prosecute any alcohol or drug abuse patient.[facility] CenterIn the event this information is protected by the Federal Confidentiality of Alcohol and Drug Abuse Patient Records regulations: The Federal rules restrict any use of the information to criminally investigate or prosecute any alcohol or drug abuse patient.[facility] CenterIn the event this information is protected by the Federal Confidentiality of Alcohol and Drug Abuse Patient Records regulations: The Federal rules restrict any use of the information to criminally investigate or prosecute any alcohol or drug abuse patient.[facility] FOR RECORDS PERTAINING TO PATIENTS WHO ARE OR HAVE BEEN ENROLLED IN A CHEMICAL DEPENDENCY/SUBSTANCEABUSE PROGRAM, SOME INFORMATION MAY BE OMITTED. This clinical summary was aggregated from multiple sources. Caution should be exercised in using it in the provision of clinical care. This summary normalizes information from multiple sources, and as a consequence, information in this document may materially change the coding, format and clinical context of patient data. In addition, data may be omitted in some cases. CLINICAL DECISIONS SHOULD BE BASED ON THE PRIMARY CLINICAL RECORDS. [facility] [employer] provides no warranty or guarantee of the accuracy or completeness of information in this document.
--- NOTE | 2024-12-20 09:35 | MM_ITS ---
Patient Name: MARY NAVARRO MR#: [id number] : 1965 Exam Date: 12/20/2024 Ordering Doctor: DR DORON GLI M.D. RADIOLOGY REPORT PROCEDURE: MM TOMOSYNTHESIS SCREENING BI COMPARISON: MM TOMOSYNTHESIS SCREENING BI, 12/19/2023. MM TOMOSYNTHESIS SCREENING BI, 12/15/2022. MG MAMM SCREEN 3D ZAMZAM CAD, 12/14/2021. MG MAMM ZAMZAM SCRN W CAD DIG, 10/18/2012. INDICATIONS: Screening Calculator Name NCI Breast Cancer Risk Assessment Tool 5 Year Breast Cancer Risk 1.80% Lifetime Breast Cancer Risk 9.10% Personal Breast Cancer No Personal Ovarian Cancer No Treatments None Family Cancers None LOCATION: [facility] BREAST COMPOSITION: The breasts are heterogeneously dense, which may obscure small masses. FINDINGS: RIGHT BREAST: No significant suspicious finding. Benign-appearing calcifications are present. LEFT BREAST: No significant suspicious finding. Benign-appearing calcifications are present. DIAGNOSTIC CATEGORY 2--BENIGN FINDING. NO CHANGE FROM COMPARISON. RECOMMENDATIONS: ROUTINE MAMMOGRAM AND CLINICAL EVALUATION IN 12 MONTHS. Dictated by: Alex Ceballos MD on 12/20/2024 at 11:05 Approved by: Alex Ceballos MD on 12/20/2024 at 11:14
== END 2024-12-20 09:05 | disposition home or self-care (01) ==
LOC: MAMMO 09:05
PROVIDERS: PCP Family Medicine; Visit Provider Obstetrics & Gynecology
DX: Z12.31 Encounter for screening mammogram for malignant neoplasm of breast (principal)
CPT/HCPCS: 77063; 77067